=== PATIENT | female | born 1945 | race Caucasian/White ===

== ENCOUNTER 2017-07-15 08:52 | Day surgery (SDC) | payer MEDICARE, OTHER ==
[~2017-07-15] VITALS: Ht 167.6 cm; Wt 89.8 kg
[~2017-07-15 08:52] MED LIST: ANASTROZOLE1 MG PO; CALTRATE 600 +1 EAC1 PO; CENTRUM SILVER1 EAC1 PO; CYMBALTA60 MG PO; DICLOFENAC SODI75 MG PO; FLONASE ALLERG9.9 ML NS; FLUOXETINE HCL20 M1 PO; FOSAMAX70 MG PO; GABAPENTIN100 MG PO; HYDROCODON-ACE1 EA11 PO; HYDROMORPHO IV; IRON325 M1 PO; LIALDA1.2 GM PO; MIRALAX17 GM PO; NORCO 5-325 TA1 EACH PO; OMEGA 3 1,0001 EACH PO; OMEPRAZOLE40 MG PO; ONDANSETRON HCL4 MG PO; PERCOCET 7.5-31 EACH PO; VITAMIN C500 M1 PO; VITAMIN D32000 UNI1 PO; VITAMIN D35000 UNIT PO; XARELTO10 MG PO
--- NOTE | 2017-07-15 11:08 | NUR ---
07/15/17 1108 Sally Bledsoe 1103 PATIENT ARRIVES TO PACU SLEEPING, OPENS EYES WITH VERBAL STIMULI, BUT VERY DROWSY, THEN BACK TO SLEEP. RESP EVEN AND UNLABORED, NC AT 3 LTIERS. 1105 PATIENT AWAKE, TALKING TO DR MORALES, THEN BACK TO SLEEP.
--- NOTE | 2017-07-15 14:55 | NUR ---
PT REQUESTED A VISIT. I HAD JUST A MOMENT BEFORE STAFF CAME TO TAKE HER. I COULD SENSE SOME ANXIETY, PRAYED FOR PEACE OF MIND, AND CONTINUED TO CARE FOR ABDULAZIZ. HE EXPRESSED CONCERN ABOUT HER PAST FAMILY AND HER OWN COLON ISSUES. BREATHED A BIG SIGH OF RELIEF WITH A CLEAN SCOPE RESULT. THANKED ME FOR VISIT. WILL CONTINUE TO BE AVAILABLE NEEDED
--- NOTE | 2017-07-15 20:48 | OR ---
[facility] [address], [place] [address] Signed DATE OF OPERATION: 07/15/2017 SURGEON: Karla Morales MD PREOPERATIVE DIAGNOSES: 1. Persisting recurring diarrhea. 2. History of ulcerative colitis, on mesalamine. POSTOPERATIVE DIAGNOSIS: Mild rectosigmoid and rectal inflammation (edema). PROCEDURE: Total colonoscopy to cecum with multiple biopsies. ANESTHESIA: Intravenous sedation, fentanyl 150 mcg and Versed 6 mg. INDICATION: This 71-year-old white woman is a patient of Dr. Flood and known to have ulcerative colitis in the past. She is currently on mesalamine and has been. She has also had cholecystectomy in the past. She had an episode in April with rather significant flare of symptoms including diarrhea, but no blood. She had a fair amount of mucus as well. She was prescribed Imodium which helps. She is to continue with her mesalamine. My evaluation of her showed her to be in good health other than her symptoms of loose bowel movements which were at least six times a day. She was empirically treated with Flagyl 250 mg p.o. t.i.d. for 2 weeks which she took. She cannot say there was a clear benefit from it specifically, however. She is here for colonoscopy on that basis to assess for disease activity of previously established ulcerative colitis. FINDINGS: The prep was adequate, but not great. This may be related to Ensure that she had taken yesterday. She had numerous diverticula throughout the colon. There was no severe inflammatory change of the colon in anyway. The rectosigmoid and rectum had edema suggestive of mild colitis. No ulcerations for sure. Biopsies were taken throughout. She did have internal hemorrhoidal changes as well. DESCRIPTION OF PROCEDURE: The patient was brought to the operating room #2, temporary endoscopy suite, placed in the lateral decubitus position, and given intravenous sedation to the point of slurred speech and nystagmus with full cardiopulmonary monitoring. Digital rectal examination Electronically Signed By: KARLA MORALES MD 07/15/17 2048 PATIENT NAME: MICHEL GREEN OPERATIVE REPORT DATE OF : 45 REPORT #: [id number] PHYSICIAN: KARLA MORALES MD PCP: DAVID FLOOD MD REPORT IS CONFIDENTIAL AND NOT TO BE RELEASED WITHOUT AUTHORIZATION [facility] [address], [place] [address] Signed was performed and found to be normal. An Olympus video colonoscope was passed in the rectum and manipulated throughout the colon. She had areas of gelatinous residue in the colon. No sign of blood or ulceration. Irrigation was undertaken throughout as needed. The scope ultimately was passed to the cecum. The cecum appeared quite normal. Biopsies were taken of it for pathologic examination. The scope was further withdrawn. Irrigation undertaken and suctioned as needed. The mucosal pattern was not inflamed particularly. She did have numerous diverticula, which included right side. Biopsies were taken of the transverse colon, left colon, sigmoid and rectosigmoid as was edematous change there (blurring of blood vessels and so forth), but no sign of ulcerations proper. Biopsies were taken of the rectum as well. Retroflexed view confirmed internal hemorrhoidal changes. The scope was straightened, withdrawn and removed. The patient was taken to the recovery room in good condition. CONCLUDING DIAGNOSIS: Mindful of her underlying ulcerative colitis diagnosis. She does not appear to have severe flare of disease at this time. Whether or not Flagyl is a benefit is uncertain. I would have her continue with mesalamine for the time being. Discontinue the Imodium she was taking and initiate Questran 4 g p.o. q.i.d. tapering to the lowest effective dose. She will see us back in the office in 4 to 6 weeks, at which point we will review her pathology reports and assess her clinical situation. MD TORY Pfeiffer/MODL /[id number] cc: David Flood MD Copies: DAVID FLOOD MD ~ Electronically Signed By: KARLA MORALES MD 07/15/17 2048 PATIENT NAME: MICHEL GREEN OPERATIVE REPORT DATE OF : 45 REPORT #: [id number] PHYSICIAN: KARLA MORALES MD PCP: DAVID FLOOD MD REPORT IS CONFIDENTIAL AND NOT TO BE RELEASED WITHOUT AUTHORIZATION
== END 2017-07-15 11:40 | disposition home or self-care (01) ==
LOC: OPS 08:52 → DS 08:52 → OPS 09:45 → DS 13:00 → OPS 14:00
PROVIDERS: Surgery
PROC: 0DBL8ZX Excision of Transverse Colon, Via Natural or Artificial Opening Endoscopic, Diagnostic (ICD-10-PCS; 2017-07-15)
PROC: 0DBP8ZX Excision of Rectum, Via Natural or Artificial Opening Endoscopic, Diagnostic (ICD-10-PCS; 2017-07-15)
PROC: 0DBG8ZX Excision of Left Large Intestine, Via Natural or Artificial Opening Endoscopic, Diagnostic (ICD-10-PCS; 2017-07-15)
PROC: 0DBH8ZX Excision of Cecum, Via Natural or Artificial Opening Endoscopic, Diagnostic (ICD-10-PCS; principal; 2017-07-15 09:45)
DX: K62.89 Other specified diseases of anus and rectum (principal); K64.8 Other hemorrhoids; K57.30 Diverticulosis of large intestine without perforation or abscess without bleeding; K62.5 Hemorrhage of anus and rectum; Z87.891 Personal history of nicotine dependence; K21.9 Gastro-esophageal reflux disease without esophagitis; E66.3 Overweight; Z68.32 Body mass index [BMI] 32.0-32.9, adult; Z91.040 Latex allergy status
CPT/HCPCS: 88305; 99153; G0500; J0690; J2250; J3010; J7120

== ENCOUNTER 2019-08-19 11:54 | Inpatient (IN) | payer MEDICARE, OTHER ==
[~2019-08-19] VITALS: Ht 167.6 cm; Wt 82.1 kg
--- OUTSIDE RECORDS SUMMARY | ~2019-08-19 | XMS | Encounter Summary ---
Demographics + + + | Address | [address] | | | [place] [address] | + + + | Home Phone | | + + + | Preferred Language | Unknown | + + + | Marital Status | | + + + | Pentecostalism Affiliation | Unknown | + + + | Race | Unknown | + + + | Ethnic Group | Unknown | + + + Author + + + | Author | [facility] | | | and [place] | + + + | Organization | [facility] | | | and [place] | + + + | Address | Unknown | + + + | Phone | Unavailable | + + + Support + + + + + | Name | Relationship | Address | Phone | + + + + + | Jettghislaine Fernandes | ECON | 1906 | | | | | [place] | | | | | [address] | | + + + + + | No Contacts | ECON | Unknown | | + + + + + Care Team Providers + +------+ + | Care Ve Teacher Name | Role | Phone | + +------+ + PCP | Unavailable | + +------+ + Encounter Details +--------+ + + + + | Date | Type | Department | Care Team | Description | +--------+ + + + + | 10/05/ | Hospital | [facility] | [place], | | | 2007 - | Encounter | MED CTR CANCER | Lux Goddard MD [address] | | | | [address] | [address] | | | 10/15/ | | [place], [place] | [place] [address] | | | 2007 | | [address] | [phone] | | | | | [phone] | | | +--------+ + + + + Social History + +-------+ +--------+------+ | Tobacco Use | Types | Packs/Day | Years | Date | | | | | Used | | + +-------+ +--------+------+ | Never Assessed | | | | | + +-------+ +--------+------+ + + + | Sex Assigned at | Date Recorded | | | | + + + | Not on file | | + + + documented as of this encounter Plan of Treatment Not on filedocumented as of this encounter Visit Diagnoses Not on filedocumented in this encounter"
--- OUTSIDE RECORDS SUMMARY | ~2019-08-19 | XMS | Encounter Summary ---
Demographics + + + | Address | [address] | | | [place] [address] | + + + | Home Phone | | + + + | Preferred Language | Unknown | + + + | Marital Status | | + + + | Hindu Affiliation | Unknown | + + + | Race | Unknown | + + + | Ethnic Group | Unknown | + + + Author + + + | Author | [facility] | | | and [place] | + + + | Organization | [facility] | | | and [place] | + + + | Address | Unknown | + + + | Phone | Unavailable | + + + Support + + + + + | Name | Relationship | Address | Phone | + + + + + | Jett Fernandes | ECON | [address] | | | | | [place] | | | | | [address] | | + + + + + | No Contacts | ECON | Unknown | | + + + + + Care Team Providers + +------+ + | Care Motor Electrician Name | Role | Phone | + +------+ + | Kike Ragsdale MD | PCP | | + +------+ + Reason for Visit + + + | Reason | Comments | + + + | Hand Problem | Right wrist pain | + + + Service/Procedure (Routine) +--------+--------+ + + + + | Status | Reason | Specialty | Diagnoses / | Referred By | Referred To | | | | | Procedures | Contact | Contact | +--------+--------+ + + + + | Closed | | | Diagnoses | Michael, | Brennen | | | | | Ekaterina | Jeremy | Bernardino Cifuentes MD | | | | | tunnel | MD Rick | [address] | | | | | syndrome | [address] | [facility] | | | | | unspecified | [place] | [place] [address] | | | | | laterality | [place] [address] | Phone: | | | | | | [place], [place] | [phone] | | | | | | [address] | Fax: | | | | | | Phone: | [phone] | | | | | | [phone] | | | | | | | Fax: | | | | | | | [phone] | | +--------+--------+ + + + + Encounter Details +--------+---------+ + + + | Date | Type | Department | Care Team | Description | +--------+---------+ + + + | 10/24/ | Office | [facility] | Bernardino Hutton, | Right carpal tunnel | | 2019 | Visit | ORTHO [facility]TS | MD Rehan HOLM | syndrome (Primary | | | | [facility] | [place] [address] | Dx); Right hand | | | | [address] | [phone] | weakness; Thenar | | | | [place], [place] | | atrophy, right | | | | [address] | | | | | | [phone] | | | +--------+---------+ + + + Social History + +-------+ +--------+------+ | Tobacco Use | Types | Packs/Day | Years | Date | | | | | Used | | + +-------+ +--------+------+ | Former Smoker | | 1 | | | + +-------+ +--------+------+ + + + | Sex Assigned at | Date Recorded | | | | + + + | Not on file | | + + + documented as of this encounter Last Filed Vital Signs + + + + + | Vital Sign | Reading | Time Taken | Comments | + + + + + | Blood Pressure | 128/72 | 10/24/2018 10:16 AM | | | | | PDT | | + + + + + | Pulse | 72 | 10/24/2018 10:16 AM | | | | | PDT | | + + + + + | Temperature | - | - | | + + + + + | Respiratory Rate | - | - | | + + + + + | Oxygen Saturation | 98% | 10/24/2018 10:16 AM | | | | | PDT | | + + + + + | Inhaled Oxygen | - | - | | | Concentration | | | | + + + + + | Weight | 83.1 kg (183 lb 3.2 | 10/24/2018 10:16 AM | | | | oz) | PDT | | + + + + + | Height | 167.6 cm (5' 6") | 10/24/2018 10:16 AM | | | | | PDT | | + + + + + | Body Mass Index | 29.57 | 10/24/2018 10:16 AM | | | | | PDT | | + + + + + documented in this encounter Progress Notes Bernardino Hutton MD - 10/24/2018 10:05 AM PDTFormatting of this note might be different fro m the original. [facility]: Orthopedic Surgery Patient Name:Angelina Zuñiga AGE: 72 y.o. :1945 CHIEF COMPLAINT: Hand Problem (Right wrist pain ) HPI HISTORY OF PRESENT ILLNESS Patient overall doing well. No complications noted. No signs of infection. 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 SPRAYS BLEACH WATER ON SKIN ROSELYN LY Neuromyopathy (HCC) Visual disturbance READERS Past Surgical History: Procedure Laterality Date BREAST LUMPECTOMY Right 2013 CARPAL TUNNEL RELEASE Right 03/18/2018 Procedure: CARPAL TUNNEL RELEASE; Surgeon: Epifanio Sandoval DO; Location: [facility]; Service: Orthopedics; Laterality: Right; RT CTR CARPAL TUNNEL RELEASE Right 09/09/2018 Procedure: CARPAL TUNNEL RELEASE; Surgeon: Bernardino Hutton MD; Location: [facility]; Service: Orthopedics; Laterality: Right; with fat pad graft CHOLECYSTECTOMY 2007 KNEE SURGERY Bilateral TKA , 2013 on right, 2010 on left OTHER SURGICAL HISTORY 2008 ABDOMINAL WALL MESH REMOVAL - ALONG WITH HERNIA REPAIR OTHER SURGICAL HISTORY HARDWARE PRESENT - BILAT KNEES OTHER SURGICAL HISTORY Right 09/09/2018 TENDON TRANSFER - Procedure: TENDON TRANSFER/TRANSPLANT; Surgeon: Bernardino Hutton MD; Lo cation: [facility]; Service: Orthopedics; Laterality: Right; Right revision carpa l tunnel release, tendon transfer TONSILLECTOMY AND ADENOIDECTOMY A CHILD Allergies Allergen Reactions Latex Rash Prior to Admission medications Medication Sig Start Date End Date Taking? Authorizing Provider calcium-vitamin D (CALCIUM 600/VITAMIN D) 600-400 MG-UNIT TABS Take by mouth Daily. 2 DATA MIGRATION GABRIEL SR cholecalciferol (VITAMIN D-3 SUPER STRENGTH) 2000 UNITS TABS Take 2,000 Units by mouth Karon y. 10/30/11 DATA MIGRATION GABRIEL SR fluoxetine (PROZAC) 20 MG tablet Take 1-2 tablets by mouth daily 10/30/11 DATA MIGRATION E DI SR Magnesium Gluconate 250 MG TABS Take 250 mg by mouth Daily. 10/30/11 DATA MIGRATION GABRIEL SR mesalamine (LIALDA) 1.2 G EC tablet Take 2 tablets by mouth once daily 10/30/11 DATA MIGRA TION GABRIEL SR Multiple Vitamins-Minerals (CENTRUM SILVER) TABS Take 1 tablet by mouth once daily 10/30/11 DATA MIGRATION GABRIEL SR [place]-3 Fatty Acids (OMEGA 3 PO) CPDR Take 1 capsule by mouth daily 10/30/11 DATA MIGRATIO N GABRIEL SR omeprazole (PRILOSEC) 40 MG capsule Take 40 mg by mouth Daily. 10/30/11 DATA MIGRATION GABRIEL SR Potassium Gluconate 550 MG TABS Take 550 mg by mouth Daily. 10/30/11 DATA MIGRATION GABRIEL SR No family history on file. Social History Socioeconomic History Marital status: Spouse name: Not on file Number of children: Not on file Years of education: Not on file Highest education level: Not on file Social Needs Financial resource strain: Not on file Food insecurity - worry: Not on file Food insecurity - inability: Not on file Transportation needs - medical: Not on file Transportation needs - non-medical: Not on file Occupational History Not on file Tobacco Use Smoking status: Former Smoker Packs/day: 1.00 Substance and Sexual Activity Alcohol use: Not on file Comment: Alcoholic Drinks/day: ONE TO TWO DRINKS PER WEEK Drug use: Not on file Comment: Drug use: No Sexual activity: Not on file Other Topics Concern Not on file Social History Narrative Not on file PHYSICAL EXAM Vital Signs: BP 128/72 | Pulse 72 | Ht 1.676 m (5' 6") | Wt 83.1 kg (183 lb 3.2 oz) | SpO2 98% | BM I 29.57 kg/m Physical Exam Ortho Exam Wound healed Neurovascularly intact, Motor and sensation grossly intact Brisk cap refill 2+ pulses No signs of complication Tendon transfer is intact for thumb abduction. Thumb abduction is strong. Sensation has i mproved to the DIP joint crease on the median nerve innervated digits PROBLEM LIST Encounter Diagnoses Name Primary? Right carpal tunnel syndrome Yes Right hand weakness Thenar atrophy, right ASSESSMENT & PLAN Continue tendon transfer protocol in terms of gradual strengthening at this point. No furt her splinting required. Follow-up in about 6-8 weeks. All questions answered. @[email or web address]@ Primary Care Physician: MD Bernardino Tolbert MD This document has been prepared with [employer]ther[employer] voice recognition system. The possibility of "s ound alike" bore miner operator errors, and additions, or deletions may occur. If there is any que stion with respect to clarity of the message being conveyed, please contact me directly for clarification. documented in this en counter Plan of Treatment Not on filedocumented as of this encounter Visit Diagnoses + + | Diagnosis | + + | Right carpal tunnel syndrome - Primary Carpal tunnel syndrome | + + | Right hand weakness Muscle weakness (generalized) | + + | Thenar atrophy, right | + + documented in this encounter
--- OUTSIDE RECORDS SUMMARY | ~2019-08-19 | XMS | Encounter Summary ---
Demographics + + + | Address | [address] | | | [place] [address] | + + + | Home Phone | | + + + | Preferred Language | Unknown | + + + | Marital Status | | + + + | Nondenominational Affiliation | Unknown | + + + | Race | Unknown | + + + | Ethnic Group | Unknown | + + + Author + + + | Author | [facility] | | | and [place] | + + + | Organization | [facility] | | [...] [place] | | | | | [address] | | + + + + + | No Contacts | ECON | Unknown | | + + + + + Care Team Providers + +------+ + | Care Shot Man Name | Role | Phone | + +------+ + PCP | Unavailable | + +------+ + Encounter Details +--------+ + + + + | Date | Type | Department | Care Team | Description | +--------+ + + + + | 11/14/ | Hospital | [facility] | [place], | | | 2009 | Encounter | MED CTR CANCER | Lux Goddard MD [address] | | | [address] | [address] | | | | | [place], [place] | [place] [address] | | | | | [address] | [phone] | | | | | [phone] | | | +--------+ + + + [...] Not on filedocumented as of this encounter Procedures + +--------+ + + + | Procedure Name | Priori | Date/Time | Associated Diagnosis | Comments | | | ty | | | | + +--------+ + + + | IMAGING REPORT - | | 04/01/2018 | | Results for this | | EXTERNAL SCAN | | 12:00 AM | | procedure are in the | | | | PST | | results section. | + +--------+ + + + documented in this encounter Results IMAGING REPORT - EXTERNAL SCAN (04/01/2018 12:00 AM PST) + + + | Narrative | Performed At | + + + | Ordered by an | | | unspecified provider. | | + + + documented in this encounter Visit Diagnoses Not on filedocumented in this encounter"
--- OUTSIDE RECORDS SUMMARY | ~2019-08-19 | XMS | Encounter Summary ---
Demographics + + + | Address | [address] | | | [place] [address] | + + + | Home Phone | | + + + | Preferred Language | Unknown | + + + | Marital Status | | + + + | Sikhism Affiliation | Unknown | + + + | Race | Unknown | + + + | Ethnic Group | Unknown | + + + Author + + + | Author | [facility] | | | and [place] | + + + | Organization | [facility] | | [...] [place] | | | | | [address] | | + + + + + | No Contacts | ECON | Unknown | | + + + + + Care Team Providers + +------+ + | Care Office Bookkeeper Name | Role | Phone | + +------+ + PCP | Unavailable | + +------+ + Encounter Details +--------+ + + + + | Date | Type | Department | Care Team | Description | +--------+ + + + + | 07/06/ | Hospital | [facility] | [place], | | | 2006 - | Encounter | MED CTR CANCER | Lux Goddard MD [address] | | | | | [place] [address] | [address] | | | 07/15/ | | [place], [place] | [place] [address] | | | 2006 | | [address] | [phone] | | | | | [phone] | | | +--------+ + + + [...]
--- OUTSIDE RECORDS SUMMARY | ~2019-08-19 | XMS | Encounter Summary ---
Demographics + + + | Address | [address] | | | [place] [address] | + + + | Home Phone | | + + + | Preferred Language | Unknown | + + + | Marital Status | | + + + | Druze Affiliation | Unknown | + + + | Race | Unknown | + + + | Ethnic Group | Unknown | + + + Author + + + | Author | [facility] | | | and [place] | + + + | Organization | [facility] | | | and [place] | + + + | Address | Unknown | + + + | Phone | Unavailable | + + + Support + + + + + | Name | Relationship | Address | Phone | + + + + + | Jett Fernandes | ECON | 1906 | | | | | [place] | | | | | [address] | | + + + + + | No Contacts | ECON | Unknown | | + + + + + Care Team Providers + +------+ + | Care Manager Desktop Name | Role | Phone | + +------+ + | Kike Ragsdale MD | PCP | | + +------+ + Reason for Visit +--------+--------+ + | Reason | Onset | Comments | | | Date | | +--------+--------+ + | Other | 10/12/ | Protocol for therapy | | | 2018 | | +--------+--------+ + Encounter Details +--------+ + + + + | Date | Type | Department | Care Team | Description | +--------+ + + + + | 10/12/ | Telephone | [facility] | Bernardino Hutton, | Other (Protocol for | | 2018 | | ORTHO SPORTS | [address] | therapy) | | | | [facility] [place] | [place] [address] | | | | | [address] | [phone] | | | | | [place], [place] | | | | | | [address] | | | | | | [phone] | | | +--------+ + + + [...] + + documented as of this encounter Miscellaneous Notes Telephone Encounter - Samantha Meade CMA - 10/12/2018 2:30 PM PDTFaxed over protocol, per Rogers laboy patient needs to do heidi protocol. Fax confirmation received. Electronically conner d by Samantha Meade CMA at 10/12/2018 2:33 PM PDTTelephone Encounter - Annie Mckee - 10/12/2018 10:36 AM PDTDr. Hutton patient called and stated that she has an PT order to [facility] in [place] and they need Dr. Hutton protocol for the patients Right Hand. Please fax protocol to Attn Tammy. Please call patient back to let her know it has been faxed. doc umented in this encounter Plan of Treatment Not on filedocumented as of this encounter Visit Diagnoses Not on filedocumented in this encounter"
--- OUTSIDE RECORDS SUMMARY | ~2019-08-19 | XMS | Encounter Summary ---
Demographics + + + | Address | [address] | | | [place] [address] | + + + | Home Phone | | + + + | Preferred Language | Unknown | + + + | Marital Status | | + + + | Yazidi Affiliation | Unknown | + + + | Race | Unknown | + + + | Ethnic Group | Unknown | + + + Author + + + | Author | [facility] | | | and [place] | + + + | Organization | [facility] | | | and [...] [place] | | | | | [address] | | + + + + + | No Contacts | ECON | Unknown | | + + + + + Care Team Providers + +------+ + | Care Invoice Machine Operator Name | Role | Phone | + +------+ + PCP | Unavailable | + +------+ + Encounter Details +--------+ + + + + | Date | Type | Department | Care Team | Description | +--------+ + + + + | 10/05/ | Hospital | [facility] | [place], | | | 2007 - | Encounter | MED CTR CANCER | Lux Goddard MD [address] | | | | | [place] [address] | [address] | | | 10/15/ | | [place], [place] | [place] [address] | | | 2007 | | [address] | [phone] | | | | | [phone] | | | +--------+ + + + [...]
--- OUTSIDE RECORDS SUMMARY | ~2019-08-19 | XMS | Encounter Summary ---
Demographics + + + | Address | [address] | | | [place] [address] | + + + | Home Phone | | + + + | Preferred Language | Unknown | + + + | Marital Status | | + + + | Denominational Affiliation | Unknown | + + + | Race | Unknown | + + + | Ethnic Group | Unknown | + + + Author + + + | Author | [facility] | | | and [place] | + + + | Organization | [facility] | | | [...] [place] | | | | | [address] | | + + + + + | No Contacts | ECON | Unknown | | + + + + + Care Team Providers + +------+ + | Care Production Sampler Name | Role | Phone | + +------+ + | Kike Ragsdale MD | PCP | | + +------+ + Encounter Details +--------+ + + + + | Date | Type | Department | Care Team | Description | +--------+ + + + + | 03/10/ | Orders Only | [facility] | Epifanio Sandoval | | | 2018 | | [address] | [address] | | | | | [place] | [place], | | | | | [place], [place] | [place] [address] | | | | | [address] | [phone] | | | | | [phone] | | | +--------+ + + + [...] | + +--------+ + + + | XR WRIST RIGHT 3 + | Routin | 03/10/2018 | | Results for this | | VW | e | 10:44 AM | | procedure are in the | | | | PST | | results section. | + +--------+ + + + documented in this encounter Results XR Wrist Right 3 + Vw (03/10/2018 10:44 AM PST) + + | Specimen | + + | | + + + + + | Narrative | Performed At | + + + | History: This is a 72 y.o. year old female. Diagnosis for Order | | | ICD-10-CM 1. Right carpal tunnel syndrome G56.01 X-ray wrist right | | | . Findings: 3 views of the right wrist do not demonstrate acute | | | fracture dislocations. Some evidence of mild osteoarthritis the | | | radiocarpal joints. No further findings.. 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 Epifanio Sandoval DO | | | 03/10/2018 Epifanio Sandoval DO has created this entry using Neu[employer] | | | [employer] Voice Recognition software and ReachLocal macros. The entry | | | has been reviewed and there may still exist sound alike word errors. | | | | | + + + + + | Procedure Note | + + | Ari Cano Conversion - 10/06/2018 1:53 PM PDT History: This is a 72 y.o. year old | | female. Diagnosis for Order ICD-10-CM1. Right carpal tunnel syndrome G56.01 X-ray | | wrist right. Findings: 3 views of the right wrist do not demonstrate acute | | fracturedislocations. Some evidence of mild osteoarthritis the radiocarpal joints.No | | further findings.. Impression: Mild osteoarthritis radiocarpal joint. Epifanio Sandoval, | | DO03/10/2018 Epifanio Sandoval DO has created this entry using Tra[employer]mission | | VoiceRecognition software and ReachLocal macros. The entry has been reviewed andthere | | may still exist sound alike word errors. | | | |Impression: Mild osteoarthritis radiocarpal joint. | | | | | |Epifanio Sandoval DO | |03/10/2018 | | | |Epifanio Sandoval DO has created this entry using Traansmission Voice | |Recognition software and ReachLocal macros. The entry has been reviewed and | |there may still exist sound alike word errors. | | | + + documented in this encounter Visit Diagnoses Not on filedocumented in this encounter"
--- OUTSIDE RECORDS SUMMARY | ~2019-08-19 | XMS | Encounter Summary ---
Demographics + + + | Address | [address] | | | [place] [address] | + + + | Home Phone | | + + + | Preferred Language | Unknown | + + + | Marital Status | | + + + | Hindu Affiliation | Unknown | + + + | Race | Unknown | + + + | Ethnic Group | Unknown | + + + Author + + + | Author | [facility] | | | and [place] | + + + | Organization | [facility] | | [...] [place] | | | | | [address] | | + + + + + | No Contacts | ECON | Unknown | | + + + + + Care Team Providers + +------+ + | Care Wage Adjuster Name | Role | Phone | + +------+ + PCP | Unavailable | + +------+ + Encounter Details +--------+ + + + + | Date | Type | Department | Care Team | Description | +--------+ + + + + | 07/06/ | Hospital | [facility] | [place], | | | 2006 - | Encounter | MED CTR CANCER | Lux Goddard MD [address] | | | | | [place] [address] | [address] | | | 07/15/ | | [place], [place] | [place] [address] | | | 2006 | | [address] | [phone] | | | | | [phone] | | | +--------+ + + + [...]
--- OUTSIDE RECORDS SUMMARY | ~2019-08-19 | XMS | Encounter Summary ---
Demographics + + + | Address | [address] | | | [place] [address] | + + + | Home Phone | | + + + | Preferred Language | Unknown | + + + | Marital Status | | + + + | Yazidi Affiliation | Unknown | + + + | Race | Unknown | + + + | Ethnic Group | Unknown | + + + Author + + + | Author | [facility] | | | and [place] | + + + | Organization | [facility] | | [...] [place] | | | | | [address] | | + + + + + | No Contacts | ECON | Unknown | | + + + + + Care Team Providers + +------+ + | Care Line Haul Driver Name | Role | Phone | + +------+ + PCP | Unavailable | + +------+ + Encounter Details +--------+ + + + + | Date | Type | Department | Care Team | Description | +--------+ + + + + | 08/03/ | Hospital | [facility] | [place], | | | 2006 - | Encounter | MED CTR CANCER | Lux Goddard MD [address] | | | | | [place] [address] | [address] | | | 08/14/ | | [place], [place] | [place] [address] | | | 2006 | | [address] | [phone] | | | | | [phone] | | | +--------+ + + + [...]
--- OUTSIDE RECORDS SUMMARY | ~2019-08-19 | XMS | Encounter Summary ---
Demographics + + + | Address | [address] | | | [place] [address] | + + + | Home Phone | | + + + | Preferred Language | Unknown | + + + | Marital Status | | + + + | Zoroastrian Affiliation | Unknown | + + + | Race | Unknown | + + + | Ethnic Group | Unknown | + + + Author + + + | Author | [facility] | | | and [place] | + + + | Organization | [facility] | | | and [...] [place] | | | | | [address] | | + + + + + | No Contacts | ECON | Unknown | | + + + + + Care Team Providers + +------+ + | Care Software Developer Mid Level Name | Role | Phone | + +------+ + PCP | Unavailable | + +------+ + Encounter Details +--------+ + + + + | Date | Type | Department | Care Team | Description | +--------+ + + + + | 06/02/ | Hospital | [facility] | [place], | | | 2006 - | Encounter | MED CTR CANCER | Lux Goddard MD [address] | | | | | [place] [address] | [address] | | | 06/14/ | | [place], [place] | [place] [address] | | | 2006 | | [address] | [phone] | | | | | [phone] | | | +--------+ + + + [...]
--- OUTSIDE RECORDS SUMMARY | ~2019-08-19 | XMS | Encounter Summary ---
Demographics + + + | Address | [address] | | | [place] [address] | + + + | Home Phone | | + + + | Preferred Language | Unknown | + + + | Marital Status | | + + + | Caodaism Affiliation | Unknown | + + + | Race | Unknown | + + + | Ethnic Group | Unknown | + + + Author + + + | Author | [facility] | | | and [place] | + + + | Organization | [facility] | | | [...] [place] | | | | | [address] | | + + + + + | No Contacts | ECON | Unknown | | + + + + + Care Team Providers + +------+ + | Care Hot Metal Crane Operator Name | Role | Phone | [...] | | [place] | [place], | | | | | [place], [place] | [place] [address] | | | | | [address] | [phone] | | | | | [phone] | | | +--------+ + + + [...] Sandoval DO has created this entry using [employer] | | | Ziplocal Voice Recognition software and BioKier macros. The entry | | | has [...] Sandoval DO has created this entry using [employer] | | VoiceRecognition software and BioKier macros. The entry has been reviewed andthere | | may still exist sound alike word errors. | | | |Impression: Mild osteoarthritis radiocarpal joint. | | | | | |Epifanio Sandoval DO | |03/10/2018 | | | |Epifanio Sandoval DO has created this entry using [employer] Voice | |Recognition software and BioKier macros. The entry has been reviewed and | |there may still exist sound alike word errors. | | | + + documented in this encounter Visit Diagnoses Not on filedocumented in this encounter"
--- OUTSIDE RECORDS SUMMARY | ~2019-08-19 | XMS | Encounter Summary ---
Demographics + + + | Address | [address] | | | [place] [address] | + + + | Home Phone | | + + + | Preferred Language | Unknown | + + + | Marital Status | | + + + | Moravian Affiliation | Unknown | + + + | Race | Unknown | + + + | Ethnic Group | Unknown | + + + Author + + + | Author | [facility] | | | and [place] | + + + | Organization | [facility] | | | and [...] [place] | | | | | [address] | | + + + + + | No Contacts | ECON | Unknown | | + + + + + Care Team Providers + +------+ + | Care Hard Rock Miner Blasting Name | Role | Phone | + +------+ + PCP | Unavailable | + +------+ + Encounter Details +--------+ + + + + | Date | Type | Department | Care Team | Description | +--------+ + + + + | 10/28/ | Abstract | [place] [facility] | DATA MIGRATION GABRIEL | | | 2011 | | Conversion Location | SR | | | | | [address] | | | | | | [place], [place] | | | | | | [address] | | | | | | [phone] | | | +--------+ + + + [...] + + + | Blood Pressure | 122/78 | 07/30/2010 12:00 AM | | | | | PDT | | + + + + + | Pulse | - | - | | + + + + + | Temperature | - | - | | + + + + + | Respiratory Rate | - | - | | + + + + + | Oxygen Saturation | - | - | | + + + + + | Inhaled Oxygen | - | - | | | Concentration | | | | + + + + + | Weight | 92.5 kg (204 lb) | 07/30/2010 12:00 AM | | | | | PDT | | + + + + + | Height | 14.5 cm (5.7") | 07/30/2010 12:00 AM | | | | | PDT | | + + + + + | Body Mass Index | 4414.52 | 07/30/2010 12:00 AM | | | | | PDT | | + + + + + documented in this encounter Plan of Treatment Not on filedocumented as of this encounter Procedures + +--------+ + + + | Procedure Name | Priori | Date/Time | Associated Diagnosis | Comments | | | ty | | | | + +--------+ + + + | ENDOSCOPY, COLON, | Routin | 07/02/2008 | | Results for this | | DIAGNOSTIC | e | 12:00 AM | | procedure are in the | | | | PDT | | results section. | + +--------+ + + + documented in this encounter Results ENDOSCOPY, COLON, DIAGNOSTIC (07/02/2008 12:00 AM PDT) + + | Specimen | + + | | + + + + + | Narrative | Performed At | + + + | | | + + + documented in this encounter Visit Diagnoses Not on filedocumented in this encounter
--- OUTSIDE RECORDS SUMMARY | ~2019-08-19 | XMS | Encounter Summary ---
Demographics + + + | Address | [address] | | | [place] [address] | + + + | Home Phone | | + + + | Preferred Language | Unknown | + + + | Marital Status | | + + + | Lutheran Affiliation | Unknown | + + + | Race | Unknown | + + + | Ethnic Group | Unknown | + + + Author + + + | Author | [facility] | | | and [place] | + + + | Organization | [facility] | | | [...] [place] | | | | | [address] | | + + + + + | No Contacts | ECON | Unknown | | + + + + + Care Team Providers + +------+ + | Care Finishing Machine Operator Name | Role | Phone [...] [id number] | | | | | | [place], [place] | | | | | | [address] | | | | | | [phone] | | | +--------+ + + + [...]
--- OUTSIDE RECORDS SUMMARY | ~2019-08-19 | XMS | Encounter Summary ---
Demographics + + + | Address | [address] | | | [place] [address] | + + + | Home Phone | | + + + | Preferred Language | Unknown | + + + | Marital Status | | + + + | Hoahaoism Affiliation | Unknown | + + + | Race | Unknown | + + + | Ethnic Group | Unknown | + + + Author + + + | Author | [facility] | | | and [place] | + + + | Organization | [facility] | | | [...] [place] | | | | | [address] | | + + + + + | No Contacts | ECON | Unknown | | + + + + + Care Team Providers + +------+ + | Care Gas Or Petroleum Operator Name | Role | Phone | + +------+ + PCP | Unavailable | + +------+ + Encounter Details +--------+ + + + + | Date | Type | Department | Care Team | Description | +--------+ + + + + | 06/22/ | Hospital | [facility] | [place], | | | 2006 | Encounter | MED CTR XRAY [address] | Lux Goddard MD [address] | | | | | [place] | [address] [place] | | | | | [place] [address] | [place] [address] | | | | | [phone] | [phone] | | | | | | | | +--------+ + + + [...]
--- OUTSIDE RECORDS SUMMARY | ~2019-08-19 | XMS | Clinical Summary ---
Demographics + + + | Address | [address] | | | [place] [address] | + + + | Home Phone [...] + + + + + | Jett Dena | ECON | 1906 | | | | | [place] | | | | | [address] | | + + + + + | No Contacts | ECON | Unknown | | + + + + + Care Team Providers + +------+ + | Care Certified Nuclear Medicine Technologist Name | Role | Phone | + +------+ + | Kike Ragsdale MD | PCP | | + +------+ + Allergies + + + + + + | Active Allergy | Reactions | Severity | Noted | Comments | | | | | Date | | + + + + + + | Latex | Rash | Medium | 10/25/19 | | | | | | 19 | | + + + + + + Medications + + + +---------+------+------+-------+ | Medication | Sig | Dispensed | Refills | Star | End | Statu | | | | | | t | Date | s | | | | | | Date | | | + + + +---------+------+------+-------+ | omeprazole | Take 40 mg by mouth | | 0 | 10/16 | | Activ | | (PRILOSEC) 40 MG | Daily. | | | 06/04 | | e | | capsule | | | | 12 | | | + + + +---------+------+------+-------+ | mesalamine | Take 2 tablets by | | 0 | 10/16 | | Activ | | (LIALDA) 1.2 G EC | mouth once daily | | | 06/04 | | e | | tablet | | | | 12 | | | + + + +---------+------+------+-------+ +---+ + | | Additional | | | InformationPatient | | | not taking. Reported | | | on 10/24/2018 10:18 | | | AM | +---+ + + + +---+---+------+---+-------+ | calcium-vitamin D | Take by mouth | | 0 | 10/16 | | Activ | | (CALCIUM 600/VITAMIN | Daily. | | | 06/04 | | e | | D) 600-400 MG-UNIT | | | | 12 | | | | TABS | | | | | | | + + +---+---+------+---+-------+ | fluoxetine | Take 1-2 tablets by | | 0 | 10/16 | | Activ | | (PROZAC) 20 MG | mouth daily | | | 06/04 | | e | | tablet | | | | 12 | | | + + +---+---+------+---+-------+ +---+ + | | Additional | | | InformationPatient | | | not taking. Reported | | | on 10/24/2018 10:18 | | | AM | +---+ + + + +---+---+------+---+-------+ | cholecalciferol | Take 2,000 Units by | | 0 | 10/16 | | Activ | | (VITAMIN D-3 SUPER | mouth Daily. | | | 06/04 | | e | | STRENGTH) 2000 UNITS | | | | 12 | | | | TABS | | | | | | | + + +---+---+------+---+-------+ +---+ + | | Additional | | | InformationPatient | | | taking differently: | | | 5,000 Units Oral | | | DAILY, Reported on | | | 10/24/2018 10:18 AM | +---+ + + + +---+---+------+---+-------+ | Magnesium | Take 250 mg by mouth | | 0 | 10/16 | | Activ | | Gluconate 250 MG | Daily. | | | 06/04 | | e | | TABS | | | | 12 | | | + + +---+---+------+---+-------+ +---+ + | | Additional | | | InformationPatient | | | not taking. Reported | | | on 10/24/2018 10:18 | | | AM | +---+ + + + +---+---+------+---+-------+ | [place]-3 Fatty | CPDR Take 1 capsule | | 0 | 10/16 | | Activ | | Acids (OMEGA 3 PO) | by mouth daily | | | 20 | | e | | | | | | 12 | | | + + +---+---+------+---+-------+ +---+ + | | Additional | | | InformationPatient | | | not taking. Reported | | | on 10/24/2018 10:18 | | | AM | +---+ + + + +---+---+------+---+-------+ | Multiple | Take 1 tablet by | | 0 | 10/16 | | Activ | | Vitamins-Minerals | mouth once daily | | | 06/04 | | e | | (CENTRUM SILVER) | | | | 12 | | | | TABS | | | | | | | + + +---+---+------+---+-------+ +---+ + | | Additional | | | InformationPatient | | | not taking. Reported | | | on 10/24/2018 10:18 | | | AM | +---+ + + + +---+---+------+---+-------+ | Potassium | Take 550 mg by mouth | | 0 | 10/16 | | Activ | | Gluconate 550 MG | Daily. | | | 06/04 | | e | | TABS | | | | 12 | | | + + +---+---+------+---+-------+ +---+ + | | Additional | | | InformationPatient | | | not taking. Reported | | | on 10/24/2018 10:18 | | | AM | +---+ + + + +---+---+------+---+-------+ | diclofenac | | | 0 | 08/1 | | Activ | | (VOLTAREN) 75 mg EC | | | | 2/20 | | e | | tablet | | | | 19 | | | + + +---+---+------+---+-------+ | DULoxetine HCl | Take 125 mg by | | 0 | | | Activ | | (CYMBALTA PO) | mouth. | | | | | e | + + +---+---+------+---+-------+ | ferrous sulfate | Take 325 mg by mouth | | 0 | | | Activ | | 325 mg tablet | daily (with | | | | | e | | | breakfast). | | | | | | + + +---+---+------+---+-------+ | BIOTIN PO | Take by mouth. | | 0 | | | Activ | | | | | | | | e | + + +---+---+------+---+-------+ Active Problems + + + | Problem | Noted Date | + + + | HEMORRHOIDS, INTERNAL | | + + + | ONYCHOMYCOSIS | | + + + | DEPRESSION, MAJOR, RECURRENT, MODERATE | | + + + | FIBROCYSTIC BREAST DISEASE | | + + + | FATTY LIVER DISEASE | | + + + | ULCERATIVE COLITIS | | + + + | NON-HODGKIN'S LYMPHOMA | | + + + | FIBROMYALGIA | | + + + | CHRONIC FATIGUE SYNDROME | | + + + | LEG CRAMPS | | + + + | GASTROESOPHAGEAL REFLUX DISEASE | | + + + | ABDOMINAL PAIN, RIGHT UPPER QUADRANT | | + + + | PERS HX TOBACCO USE PRESENTING HAZARDS HEALTH | | + + + | EMOTIONAL DISTURBANCE | | + + + | CHRONIC PAIN SYNDROME | | + + + | ABDOMINAL PAIN | | + + + Social History + +-------+ +--------+------+ | Tobacco Use | Types | Packs/Day | Years | Date | | | | | Used | | + +-------+ +--------+------+ | Former Smoker | | 1 | | | + +-------+ +--------+------+ + +---+---+---+ | Smokeless Tobacco: | | | | | Never Used | | | | + +---+---+---+ + + + | Sex Assigned at | Date Recorded | | | | + + + | Not on file | | + + + Last Filed Vital Signs + + + + + | Vital Sign | Reading | Time Taken | Comments | + + + + + | Blood Pressure | 112/70 | 12/22/2018 1:06 PM | | | | | PST | | + + + + + | Pulse | 77 | 12/22/2018 1:06 PM | | | | | PST | | + + + + + | Temperature | 36.4 C (97.6 F) | 09/12/2018 10:37 AM | | | | | PDT | | + + + + + | Respiratory Rate | 16 | 12/22/2018 1:06 PM | | | | | PST | | + + + + + | Oxygen Saturation | 97% | 12/22/2018 1:06 PM | | | | | PST | | + + + + + | Inhaled Oxygen | - | - | | | Concentration | | | | + + + + + | Weight | 85 kg (187 lb 6.4 | 12/22/2018 1:06 PM | | | | oz) | PST | | + + + + + | Height | 167.6 cm (5' 6") | 12/22/2018 1:06 PM | | | | | PST | | + + + + + | Body Mass Index | 30.25 | 12/22/2018 1:06 PM | | | | | PST | | + + + + + Plan of Treatment + + + + + | Health Maintenance | Due Date | Last | Comments | | | | Done | | + + + + + | Hepatitis C | | | | | Screening | 6 | | | + + + + + | Breast Cancer | | | | | Screening | 1 | | | + + + + + | Vaccine: Zoster (2 | | 07/08/19 | | | of 3) | 1 | 11 | | + + + + + | Vaccine: | | | | | Pneumococcal 65+ (1 | 1 | | | | of 1 - PPSV23) | | | | + + + + + | Colorectal Cancer | | 07/03/19 | | | Screening | 9 | 09 | | | (Colonoscopy) | | | | + + + + + | Adult Annual | | | | | Wellness Visit | 9 | | | + + + + + | Vaccine: Influenza | | 11/23/19 | | | (#1) | 0 | 18, | | | | | 12/05/19 | | | | | 17, | | | | | 02/23/19 | | | | | 17, | | | | | Addition | | | | | al | | | | | history | | | | | exists | | + + + + + | Vaccine: | | 12/02/19 | | | Dtap/Tdap/Td (2 - | 3 | 13 | | | Td) | | | | + + + + + Results Not on filefrom Last 3 Months Insurance + +--------+ +--------+ +---------+--------+ | Payer | Benefi | Subscriber | Effect | Phone | Address | Type | | | t Plan | ID | [place] | | | | | | / | | Dates | | | | | | Group | | | | | | + +--------+ +--------+ +---------+--------+ | MEDICARE | MEDICA | [id number] | | [phone] | | Medica | | | RE | | 011-Pr | 5 | | re | | | PART A | | esent | | | | | | AND B | | | | | | + +--------+ +--------+ +---------+--------+ | [employer] | MUTUAL | [id number] | | [phone] | | Indemn | | | AND | | 011-Pr | 0 | | ity | | | [place] | | esent | | | | | | [place] | | | | | | | | MDCR | | | | | | | | SUPPL | | | | | | + +--------+ +--------+ +---------+--------+ | MEDICARE | MEDICA | [id number] | | [phone] | | Medica | | | RE | | 011-Pr | 5 | | re | | | PART A | | esent | | | | | | AND B | | | | | | + +--------+ +--------+ +---------+--------+ | [employer] | MUTUAL | [id number] | | [phone] | | Indemn | | | AND | | 018-Pr | 0 | | ity | | | [place] | | esent | | | | | | [place] | | | | | | | | MDCR | | | | | | | | SUPPL | | | | | | + +--------+ +--------+ +---------+--------+ + +--------+ +--------+ + + | Guarantor Name | Accoun | Relation to | Date | Phone | Billing Address | | | t Type | Patient | of | | | | | | | | | | + +--------+ +--------+ + + | Angelina Zuñiga | Person | Self | 12/20/ | | 1905 | | | al/Fam [birth year] | 1946 | [phone] | [place] | | | [place] | | | 1 (Home) | [address] | + +--------+ +--------+ + + | Angelina Zuñiga | Person | Self [birth year] | [address] | | | al/Fam | | 1946 | [phone] | [place] | | | [place] | | | 1 (Home) | [address] | + +--------+ +--------+ + + Advance Directives + + + + + | Type | Date Recorded | Patient | Explanation | | | | Certified Phlebotomist | | + + + + + | Power of | | | | | Pre Billing Clinician | | | | + + + + + | Advance | | | | | Directive | | | | + + + + +
--- OUTSIDE RECORDS SUMMARY | ~2019-08-19 | XMS | Encounter Summary ---
Demographics + + + | Address | [address] | | | [place] [address] | + + + | Home Phone | | + + + | Preferred Language | Unknown | + + + | Marital Status | | + + + | Restorationist Affiliation | Unknown | + + + | Race | Unknown | + + + | Ethnic Group | Unknown | + + + Author + + + | Author | [facility] | | | and [place] | + + + | Organization | [facility] | | | and [...] [place] | | | | | [address] | | + + + + + | No Contacts | ECON | Unknown | | + + + + + Care Team Providers + +------+ + | Care Interior Design Professor Name | Role | Phone | + [...] + + | 10/12/ | Telephone | [facility] | Bernardino Hutton, | Other (Protocol for | | 2018 | | ORTHO SPORTS | [address] | therapy) | | | | MEDICINE [place] | [place] [address] | | | | | [address] | [phone] | | | | | [place], [place] | | | | | | [address] | | | | | | [phone] | | | +--------+ + + + [...] that she has an PT order to [facility] in [place] and they need Dr. Hutton protocol for the patients Right Hand. Please fax protocol to Attn Tammy. Please call patient back to let her know it has been faxed. doc umented in this encounter Plan of Treatment Not on filedocumented as of this encounter Visit Diagnoses Not on filedocumented in this encounter"
--- OUTSIDE RECORDS SUMMARY | ~2019-08-19 | XMS | Encounter Summary ---
Demographics + + + | Address | [address] | | | [place] [address] | + + + | Home Phone | | + + + | Preferred Language | Unknown | + + + | Marital Status | | + + + | Uatsdin Affiliation | Unknown | + + + | Race | Unknown | + + + | Ethnic Group | Unknown | + + + Author + + + | Author | [facility] | | | and [place] | + + + | Organization | [facility] | | [...] [place] | | | | | [address] | | + + + + + | No Contacts | ECON | Unknown | | + + + + + Care Team Providers + +------+ + | Care Regional Flatbed Truck Driver Name | Role | Phone | + +------+ + PCP | Unavailable | + +------+ + Encounter Details +--------+ + + + + | Date | Type | Department | Care Team | Description | +--------+ + + + + | 08/03/ | Hospital | [facility] | [place], | | | 2006 - | Encounter | MED CTR CANCER | Lux Goddard MD [address] | | | | | [facility] [place] [address] | [address] [place] | | | 08/14/ | | [place], [place] | [place] [address] | | | 2006 | | [address] | [phone] | | | | | [phone] | | | +--------+ + + + [...]
--- OUTSIDE RECORDS SUMMARY | ~2019-08-19 | XMS | Clinical Summary ---
Demographics + + + | Address | [address] | | | [place] [address] | + + + | Home Phone | | + + + | Preferred Language | Unknown | + + + | Marital Status | | + + + | Gnosticist Affiliation | Unknown | + + + | Race | Unknown | + + + | Ethnic Group | Unknown | + + + Author + + + | Author | [facility] | | | and [place] | + + + | Organization | [facility] | | | [...] [place] | | | | | [address] | | + + + + + | No Contacts | ECON | Unknown | | + + + + + Care Team Providers + +------+ + | Care Radio/Tv Technician Name | Role | Phone | + [...] | +---+ + + + +---+---+------+---+-------+ | Sweet Water-3 Fatty | CPDR Take 1 capsule | [...] +--------+ +---------+--------+ | MEDICARE | MEDICA | [id number] | | [phone] | | Medica | | | RE | | 011-Pr | 5 | | re | | | PART A | | esent | | | | | | AND B | | | | | | + +--------+ +--------+ +---------+--------+ | [employer] [place] | MUTUAL | [id number] | | [phone] | | Indemn | | | AND | | 011-Pr | 0 | | ity | | | UNITED | | esent | | | | | | [place] | | | | | | | | MDCR | | | | | | | | SUPPL | | | | | | + +--------+ +--------+ +---------+--------+ | MEDICARE | MEDICA | [id number] | | [phone] | | Medica | | | RE | | 011-Pr | 5 | | re | | | PART A | | esent | | | | | | AND B | | | | | | + +--------+ +--------+ +---------+--------+ | [employer] [place] | MUTUAL | [id number] | | [phone] | | Indemn | | | AND | | 018-Pr | 0 | | ity | | | UNITED | | esent | | | | | | [place] | | | | | | | [...] | | al/Fam | | 1946 | [phone] | [place] | | | yojana | | | 1 (Home) | [address] | + +--------+ +--------+ + + | Angelina Zuñiga | Person | Self | [birth year] | [address] | | | al/Fam | | 1946 | [phone] | [place] | | | [place] | | | 1 (Home) | [address] | + +--------+ +--------+ + + Advance Directives + + + + + | Type | Date Recorded | Patient | Explanation | | | | Registered Nurse Maternity | | + + + + + | Power of | | | | | Steel Shot Header Operator | | | | + + + + + | Advance | | | | | Directive | | | | + + + + +
--- OUTSIDE RECORDS SUMMARY | ~2019-08-19 | XMS | Encounter Summary ---
Demographics + + + | Address | [address] | | | [place] [address] | + + + | Home Phone | | + + + | Preferred Language | Unknown | + + + | Marital Status | | + + + | Zoroastrianism Affiliation | Unknown | + + + | Race | Unknown | + + + | Ethnic Group | Unknown | + + + Author + + + | Author | [facility] | | | and [place] | + + + | Organization | [facility] | | | and [...] [place] | | | | | [address] | | + + + + + | No Contacts | ECON | Unknown | | + + + + + Care Team Providers + +------+ + | Care Dry Drug Worker Name | Role | Phone | + +------+ + PCP | Unavailable | + +------+ + Encounter Details +--------+ + + + + | Date | Type | Department | Care Team | Description | +--------+ + + + + | 08/17/ | Hospital | [facility] | [place], | | | 2006 - | Encounter | MED CTR CANCER | Lux Goddard MD [address] | | | | | [place] [address] | [address] | | | 09/14/ | | [place], [place] | [place] [address] | | | 2006 | | [address] | [phone] | | | | | [phone] | | | +--------+ + + + [...]
--- OUTSIDE RECORDS SUMMARY | ~2019-08-19 | XMS | Encounter Summary ---
Demographics + + + | Address | [address] | | | [place] [address] | + + + | Home Phone | | + + + | Preferred Language | Unknown | + + + | Marital Status | | + + + | Mu-Ism Affiliation | Unknown | + + + | Race | Unknown | + + + | Ethnic Group | Unknown | + + + Author + + + | Author | [facility] | | | and [place] | + + + | Organization | [facility] | | | [...] [place] | | | | | [address] | | + + + + + | No Contacts | ECON | Unknown | | + + + + + Care Team Providers + +------+ + | Care Diving Supervisor Name | Role | Phone | + +------+ + PCP | Unavailable | + +------+ + Encounter Details +--------+ + + + + | Date | Type | Department | Care Team | Description | +--------+ + + + + | 08/17/ | Hospital | [facility] | Kend[place], | | | 2006 - | Encounter | MED CTR CANCER | Lux Goddard MD [address] | | | | | [place] [address] | [address] | | | 09/14/ | | [place], [place] | [place] [address] | | | 2006 | | [address] | [phone] | | | | | [phone] | | | +--------+ + + + [...]
--- OUTSIDE RECORDS SUMMARY | ~2019-08-19 | XMS | Encounter Summary ---
Demographics + + + | Address | [address] | | | [place] [address] | + + + | Home Phone | | + + + | Preferred Language | Unknown | + + + | Marital Status | | + + + | Mandaen Affiliation | Unknown | + + + [...] [place] | | | | | [address] | | + + + + + | No Contacts | ECON | Unknown | | + + + + + Care Team Providers + +------+ + | Care Inspector Printed Circuit Boards Name | Role | Phone | + +------+ + PCP | Unavailable | + +------+ + Encounter Details +--------+ + + + + | Date | Type | Department | Care Team | Description | +--------+ + + + + | 11/14/ | Hospital | [facility] | Kend[place], | | | 2009 | Encounter | MED CTR CANCER | Lux Goddard MD [address] | | | | | [place] [address] | [address] | | | | | [place], [place] | [place] [address] | | | | | [address] | [phone] | | | | | [phone] | | | +--------+ + + + [...]
--- OUTSIDE RECORDS SUMMARY | ~2019-08-19 | XMS | Encounter Summary ---
Demographics + + + | Address | [address] | | | [place] [address] | + + + | Home Phone | | + + + | Preferred Language | Unknown | + + + | Marital Status | | + + + | Episcopal Affiliation | Unknown | + + + | Race | Unknown | + + + | Ethnic Group | Unknown | + + + Author + + + | Author | [facility] | | | and [place] | + + + | Organization | [facility] | | | [...] [place] | | | | | [address] | | + + + + + | No Contacts | ECON | Unknown | | + + + + + Care Team Providers + +------+ + | Care Gag Writer Name | Role | Phone | + +------+ + | Kike Ragsdale MD | PCP | | + +------+ + Reason for Visit + + + | Reason | Comments | + + + | Follow-up | Right carpal tunnel syndrome | + + + Service/Procedure (Routine) +--------+--------+ + + + + | Status | Reason | Specialty | Diagnoses / | Referred By | Referred To | | | | | Procedures | Contact | Contact | +--------+--------+ + + + + | Closed | | | Diagnoses | Michael, | Brennen, | | | | | Ekaterina | Jeremy | Bernardino Cifuentes MD | | | | | tunnel | MD Rick | [address] | | | | | syndrome | [address] | [facility], | | | | | unspecified | [place] | [place] [address] | | | | | laterality | [place] [address] | Phone: | | | | | | [place], [place] | [phone] | | | | | | [address] | Fax: | | | | | | Phone: | [phone] | | | | | | [phone] | | | | | | | Fax: | | | | | | | [phone] | | +--------+--------+ + + + + Encounter Details +--------+---------+ + + + | Date | Type | Department | Care Team | Description | +--------+---------+ + + + | 12/22/ | Office | [facility] | Bernardino Hutton, | Right carpal tunnel | | 2019 | Visit | ORTHO SPORTS | MD Rehan HOLM | syndrome (Primary | | | | [facility] [place] | [place] [address] | Dx); Right hand | | | | [address] | [phone] | weakness | | | | [place], [place] | | | | | | [address] | | | | | | [phone] | | | +--------+---------+ + + + [...] documented in this encounter Progress Notes Bernardino Huttno MD - 12/22/2018 1:20 PM PSTFormatting of this note might be different earnestine m the original. [facility]: Orthopedic Surgery Patient Name:Angelina Zuñiga AGE: 73 y.o. :1945 CHIEF COMPLAINT: Follow-up (Right carpal tunnel syndrome) Right carpal tunnel HPI HISTORY OF PRESENT ILLNESS Ms. Zuñiga is a very pleasant female who is about veqzw-maw-q-half months status post revisi on right carpal tunnel release with tendon transfer. She is doing incredibly well with minim al pain, slight pain to pressure but this is minor. Overall dramatically improved. Sensation returning to the tips of the digits. No sign of complication. The problem is intermittent a nd in a very mild severity at this point. REVIEW OF SYSTEMS, comprehensive review of systems performed and is negative except for not ed above and below Review of Systems Past Medical History: Diagnosis Date Acid reflux Anesthesia "A LITTLE BIT GOES A LONG WAY." Anxiety Depression Malignant neoplasm (HCC) R BREAST / NONHODGKIN'S LYMPHOMA Methicillin resistant Staphylococcus aureus infection 2018 "I CARRY MRSA ON MY SKIN" PER YOKER (PER PT.) PT. SPRAYS BLEACH WATER ON SKIN ROSELYN LY Neuromyopathy (HCC) Visual disturbance READERS Past Surgical History: Procedure Laterality Date BREAST LUMPECTOMY Right 2013 CARPAL TUNNEL RELEASE Right 03/18/2018 Procedure: CARPAL TUNNEL RELEASE; Surgeon: Epifanio Sandoval DO; Location: [facility]; Service: Orthopedics; Laterality: Right; RT CTR CARPAL TUNNEL RELEASE Right 09/09/2018 Procedure: CARPAL TUNNEL RELEASE; Surgeon: Bernardino Hutton MD; Location: [facility]; Service: Orthopedics; Laterality: Right; with fat pad graft CHOLECYSTECTOMY 2007 KNEE SURGERY Bilateral TKA , 2014 on right, 2010 on left OTHER SURGICAL HISTORY 2008 ABDOMINAL [place] MESH REMOVAL - ALONG WITH HERNIA REPAIR OTHER SURGICAL HISTORY HARDWARE PRESENT - BILAT KNEES OTHER SURGICAL HISTORY Right 09/09/2018 TENDON TRANSFER - Procedure: TENDON TRANSFER/TRANSPLANT; Surgeon: Bernardino Hutton MD; Lo cation: [facility]; Service: Orthopedics; Laterality: Right; Right revision carpa l tunnel release, tendon transfer TONSILLECTOMY AND ADENOIDECTOMY A CHILD Allergies Allergen Reactions Latex Rash Prior to Admission medications Medication Sig Start Date End Date Taking? Authorizing Provider BIOTIN PO Take by mouth. Historical Provider, calcium-vitamin D (CALCIUM 600/VITAMIN D) 600-400 MG-UNIT TABS Take by mouth Daily. 2 DATA MIGRATION GABRIEL SR cholecalciferol (VITAMIN D-3 SUPER STRENGTH) 2000 UNITS TABS Take 2,000 Units by mouth Karon brink Patient taking differently: Take 5,000 Units by mouth Daily. 10/30/11 DATA MIGRATION GABRIEL S R diclofenac (VOLTAREN) 75 mg EC tablet 09/26/18 Historical Provider, DULoxetine HCl (CYMBALTA PO) Take 125 mg by mouth. Historical Provider, ferrous sulfate 325 mg tablet Take 325 mg by mouth daily (with breakfast). Historical Pr MD jose alfredo fluoxetine (PROZAC) 20 MG tablet Take 1-2 tablets by mouth daily Patient not taking: Reported on 10/24/2018 10/30/11 DATA MIGRATION GABRIEL SR Magnesium Gluconate 250 MG TABS Take 250 mg by mouth Daily. Patient not taking: Reported on 10/24/2018 10/30/11 DATA MIGRATION GABRIEL SR mesalamine (LIALDA) 1.2 G EC tablet Take 2 tablets by mouth once daily Patient not taking: Reported on 10/24/2018 10/30/11 DATA MIGRATION GABRIEL SR Multiple Vitamins-Minerals (CENTRUM SILVER) TABS Take 1 tablet by mouth once daily Patient not taking: Reported on 10/24/2018 10/30/11 DATA MIGRATION GABRIEL SR [place]-3 Fatty Acids (OMEGA 3 PO) CPDR Take 1 capsule by mouth daily Patient not taking: Reported on 10/24/2018 10/30/11 DATA MIGRATION GABRIEL SR omeprazole (PRILOSEC) 40 MG capsule Take 40 mg by mouth Daily. 10/30/11 DATA MIGRATION GABRIEL SR Potassium Gluconate 550 MG TABS Take 550 mg by mouth Daily. Patient not taking: Reported on 10/24/2018 10/30/11 DATA MIGRATION GABRIEL SR History reviewed. No pertinent family history. Social History Socioeconomic History Marital status: Spouse [...] Use Smoking status: Former Smoker Packs/day: 1.00 Smokeless tobacco: Never Used Substance and Sexual Activity Alcohol use: Not on file Comment: Alcoholic Drinks/day: ONE TO TWO DRINKS PER WEEK Drug use: Not on file Comment: Drug use: No Sexual activity: Not on file Other Topics Concern Not on file Social History Narrative Not on file PHYSICAL EXAM Vital Signs: BP 112/70 | Pulse 77 | Resp 16 | Ht 1.676 m (5' 6") | Wt 85 kg (187 lb 6.4 oz) | SpO2 97% | BMI 30.25 kg/m Physical Exam Well developed well nourished patient No acute distress Alert and oriented x3 Head and neck are normal Oropharynx is clear Gaze is conjugate Breathing is unlabored Heart is regular rate and rhythm Ortho Exam Skin is clean, dry and intact Brisk cap refill 2+ pulses No deficits noted Motor and sensation are intact No masses and no lymphadenopathy Normal sweat patterns No hyperreflexia Negative hurley's maneuver Compartments are soft and compressible Able to oppose the thumb without any difficulty PROBLEM LIST Encounter Diagnoses Name Primary? Right carpal tunnel syndrome Yes Right hand weakness ASSESSMENT & PLAN At this point, recommend conservative care. No operative indications. All patient's questions answered. Risks and benefits of conservative care reviewed. I am very pleased with how the patient is doing. I think her tendon transfer is going well. She may have activity as tolerated and I am incredibly pleased with her progress. Documented by Anu. @[email or web address]@ Primary Care Physician: MD Bernardino Tolbert MD documented in this en counter Plan of Treatment Not on filedocumented as of this encounter Visit Diagnoses + + | Diagnosis | + + | Right carpal tunnel syndrome - Primary Carpal tunnel syndrome | + + | Right hand weakness Muscle weakness (generalized) | + + documented in this encounter
--- OUTSIDE RECORDS SUMMARY | ~2019-08-19 | XMS | Encounter Summary ---
Demographics + + + | Address | [address] | | | [place] [address] | + + + | Home Phone | | + + + | Preferred Language | Unknown | + + + | Marital Status | | + + + | Yazdanism Affiliation | Unknown | + + + | Race | Unknown | + + + | Ethnic Group | Unknown | + + + Author + + + | Author | [facility] | | | and [place] | + + + | Organization | [facility] | | | [...] [place] | | | | | [address] | | + + + + + | No Contacts | ECON | Unknown | | + + + + + Care Team Providers + +------+ + | Care Cutter And Presser Name | Role | Phone | + +------+ + PCP | Unavailable | + +------+ + Encounter Details +--------+ + + + + | Date | Type | Department | Care Team | Description | +--------+ + + + + | 06/22/ | Hospital | [facility] | Kendy, | | | 2006 | Encounter | MED CTR XRAY [address] | Lux Goddard MD [address] | | | | | [place] | [address] [place] | | | | | [place] [address] | [place] [address] | | | | | [phone] | [phone] | | | | | | | [...]
--- OUTSIDE RECORDS SUMMARY | ~2019-08-19 | XMS | Encounter Summary ---
Demographics + + + | Address | [address] | | | [place] [address] | + + + | Home Phone | | + + + | Preferred Language | Unknown | + + + | Marital Status | | + + + | Orthodoxy Affiliation | Unknown | + + + | Race | Unknown | + + + | Ethnic Group | Unknown | + + + Author + + + | Author | [facility] | | | and [place] | + + + | Organization | [facility] | | [...] [place] | | | | | [address] | | + + + + + | No Contacts | ECON | Unknown | | + + + + + Care Team Providers + +------+ + | Care Boiler Tube Blower Name | Role | Phone | + [...] | | syndrome | [address] | [facility], | | | | | unspecified | [place] | [place] [address] | | | | | laterality | [address] [address] | Phone: | | | | | | [place], [place] | [phone] | | | | | | [address] | Fax: | | | | | | Phone: | [phone] | | | | | | [phone] | | | | | | | Fax: | | | | | | | [phone] | | +--------+--------+ + + + + Encounter Details +--------+---------+ + + + | Date | Type | Department | Care Team | Description | +--------+---------+ + + + | 10/24/ | Office | [facility] | Bernardino Hutton, | Right carpal tunnel | | 2019 | Visit | [facility]O [facility]TS | MD Rehan HOLM | syndrome (Primary | | | | [facility] [place] | [place] [address] | Dx); Right hand | | | | [address] | [phone] | weakness; [place] | | | | [place], [place] | | atrophy, right | | | | [address] | | | | | | [phone] | | | +--------+---------+ + + + [...] might be different fro m the original. [facility]: Orthopedic Surgery Patient Name:Angelina Zuñiga [...] "I CARRY MRSA ON MY SKIN" PER REGIONAL MERCHANDISING MANAGER (PER PT.) PT. SPRAYS BLEACH WATER ON SKIN [place] LY Neuromyopathy (HCC) Visual disturbance READERS Past Surgical History: Procedure Laterality Date BREAST LUMPECTOMY Right 2013 CARPAL TUNNEL RELEASE Right 03/18/2018 Procedure: CARPAL TUNNEL RELEASE; Surgeon: Epifanio Sandoval DO; Location: [facility]; Service: Orthopedics; Laterality: Right; RT CTR CARPAL TUNNEL RELEASE Right 09/09/2018 Procedure: CARPAL TUNNEL RELEASE; Surgeon: Bernardino Hutton MD; Location: [facility]; Service: Orthopedics; Laterality: Right; with fat pad graft CHOLECYSTECTOMY 2007 KNEE SURGERY Bilateral TKA , 2013 on right, 2010 on left OTHER SURGICAL HISTORY 2008 ABDOMINAL [place] MESH REMOVAL - ALONG WITH HERNIA REPAIR OTHER SURGICAL HISTORY HARDWARE PRESENT - BILAT KNEES OTHER SURGICAL HISTORY Right 09/09/2018 TENDON TRANSFER - Procedure: TENDON TRANSFER/TRANSPLANT; Surgeon: Bernardino Hutton MD; Lo cation: [facility]; Service: Orthopedics; Laterality: Right; Right revision carpa [...] once daily 10/30/11 DATA MIGRATION GABRIEL SR [place]nel[place]-3 Fatty Acids (OMEGA 3 PO) CPDR Take [...] MD This document has been prepared with [employer] voice recognition system. The possibility of "s ound alike" dial printer errors, and additions, or deletions may occur. [...]
--- OUTSIDE RECORDS SUMMARY | ~2019-08-19 | XMS | Encounter Summary ---
Demographics + + + | Address | [address] | | | [place] [address] | + + + | Home Phone | | + + + | Preferred Language | Unknown | + + + | Marital Status | | + + + | Amish Affiliation | Unknown | + + + | Race | Unknown | + + + | Ethnic Group | Unknown | + + + Author + + + | Author | [facility] | | | and [place] | + + + | Organization | [facility] | | | [...] [place] | | | | | [address] | | + + + + + | No Contacts | ECON | Unknown | | + + + + + Care Team Providers + +------+ + | Care Mva Still Operator Name | Role | Phone | [...] | | syndrome | [address] | [facility], | | | | | unspecified | [place] | [place] [address] | | | | | laterality | [address] [address] | Phone: | | | | | | [place], [place] | [phone] | | | | | | [address] | Fax: | | | | | | Phone: | [phone] | | | | | | [phone] | | | | | | | Fax: | | | | | | | [phone] | | +--------+--------+ + + + + Encounter Details +--------+---------+ + + + | Date | Type | Department | Care Team | Description | +--------+---------+ + + + | 12/22/ | Office | [facility] | Bernardino Hutton, | Right carpal tunnel | | 2019 | Visit | OR[facility]O [facility]TS | MD Rehan HOLM | syndrome (Primary | | | | [facility] [place] | [place] [address] | Dx); Right hand | | | | [address] | [phone] | weakness | | | | [place], [place] | | | | | | [address] | | | | | | [phone] | | | +--------+---------+ + + + [...] encounter Progress Notes Bernardino Hutton MD - 12/22/2018 1:20 PM PSTFormatting of this note might be different earnestine m the original. [facility]: Orthopedic Surgery Patient Name:Angelina Zuñiga AGE: 73 y.o. :1945 CHIEF COMPLAINT: Follow-up (Right carpal tunnel syndrome) Right carpal tunnel HPI HISTORY OF PRESENT ILLNESS Ms. Zuñiga is a very pleasant female who is about gibux-vzf-f-half months status post revisi on right carpal [...] "I CARRY MRSA ON MY SKIN" PER CURING BIN OPERATOR (PER PT.) PT. SPRAYS BLEACH WATER ON SKIN ROSELYN LY Neuromyopathy (HCC) Visual disturbance READERS Past Surgical History: Procedure Laterality Date BREAST LUMPECTOMY Right 2013 CARPAL TUNNEL RELEASE Right 03/18/2018 Procedure: CARPAL TUNNEL RELEASE; Surgeon: Epifanio Sandoval DO; Location: [facility]; Service: Orthopedics; Laterality: Right; RT CTR CARPAL TUNNEL RELEASE Right 09/09/2018 Procedure: CARPAL TUNNEL RELEASE; Surgeon: Bernardino Hutton MD; Location: [facility]; Service: Orthopedics; Laterality: Right; with fat pad graft CHOLECYSTECTOMY 2007 KNEE SURGERY Bilateral TKA , 2014 on right, 2010 on left OTHER SURGICAL HISTORY 2008 ABDOMINAL [place] MESH REMOVAL - ALONG WITH HERNIA REPAIR OTHER SURGICAL HISTORY HARDWARE PRESENT - BILAT KNEES OTHER SURGICAL HISTORY Right 09/09/2018 TENDON TRANSFER - Procedure: TENDON TRANSFER/TRANSPLANT; Surgeon: Bernardino Hutton MD; Lo cation: [facility]; Service: Orthopedics; Laterality: Right; Right revision carpa [...] on 10/24/2018 10/30/11 DATA MIGRATION GABRIEL SR [place]-3 Fatty Acids (OMEGA 3 PO) CPDR Take [...]
--- OUTSIDE RECORDS SUMMARY | ~2019-08-19 | XMS | Encounter Summary ---
Demographics + + + | Address | [address] | | | [place] [address] | + + + | Home Phone | | + + + | Preferred Language | Unknown | + + + | Marital Status | | + + + | Gnosticism Affiliation | Unknown | + + + | Race | Unknown | + + + | Ethnic Group | Unknown | + + + Author + + + | Author | [facility] | | | and [place] | + + + | Organization | [facility] | | | and [...] [place] | | | | | [address] | | + + + + + | No Contacts | ECON | Unknown | | + + + + + Care Team Providers + +------+ + | Care Lawn Technician Name | Role | Phone | + +------+ + PCP | Unavailable | + +------+ + Encounter Details +--------+ + + + + | Date | Type | Department | Care Team | Description | +--------+ + + + + | 06/02/ | Hospital | [facility] | Kendy, | | | 2006 - | Encounter | MED CTR CANCER | Lux Goddard MD [address] | | | | | [place] [address] | [address] [place] | | | 06/14/ | | [place], [place] | [place] [address] | | | 2006 | | [address] | [phone] | | | | | [phone] | | | +--------+ + + + [...]
[2019-08-19] MEDS ORDERED: DULOXETINE HCL60 MG PO (12:06)
--- NOTE | 2019-08-19 16:40 | NUR ---
pt ARRIVED TO FLOOR TRANSPORTED BY THIS RN. pt ON 4L O2 VIA NC. O2 INCREASED TO 6L WHILE pt MOVED OVER FROM STRETCHER TO BED. DESATTED TO MID 80S. CHANGED TO OXYMASK 10L, pt RECOVERED WITH SATS REMAINING IN THE MID 90S ON 6L O2 VIA OXYMASK. RT IN ROOM TO ASSESS. MOVED SAT MONITOR TO TOE FOR BETTER READING. THIS RN REMAINS AT BEDSIDE.
--- NOTE | 2019-08-19 17:18 | EKG ---
[facility] [address] [facility] [place] [address] Signed Sinus rhythm with occasional premature ventricular complexes and premature atrial complexes Nonspecific ST abnormality Prolonged QT Abnormal ECG When compared with ECG of 15-MAR-2019 15:48, premature ventricular complexes are now present premature atrial complexes are now present Nonspecific T wave abnormality no longer evident in Inferior leads Confirmed by OMAIRA MADRIGAL MD ([id number]) on 08/19/2019 5:18:35 PM Electronically Signed By: OMAIRA MADRIGAL MD 08/19/19 1718 PATIENT NAME: MICHEL GREEN Electrocardiogram DATE OF : 45 PHYSICIAN: OMAIRA MADRIGAL MD REPORT #: [id number] REPORT IS CONFIDENTIAL AND NOT TO BE RELEASED WITHOUT AUTHORIZATION
[2019-08-19] MEDS ORDERED: CYMBALTA20 MG PO (17:23)
--- NOTE | 2019-08-19 18:00 | NUR ---
ASSESSMENT DONE. DID NOT AUSCULATATE DUE TO PAPR. pt DENIED CHEST PAIN AND PAIN IN GENERAL. REPORTED NOT HAVING AN APPETITE FOR THE LAST 4 DAYS, HAS NOT TAKEN MEDICATIONS IN ABOUT A WEEK. ALERT AND ORIENTED. REPORTED "A COUPLE" EPISODES WHERE SHE FAINTED BUT DID NOT FALL "I KNEW IT WAS COMING SO I SAT DOWN" TEMPERATURE ELEVATED. UP TO BSC, O2 INCREASED A PREVENTATIVE MEASURE. LIQUID STOOL WITH URINE MIXED. PROVIDED WITH ICE AND SODA. CALL LIGHT WITHIN REACH. 6L O2 VIA OXYMASK TO MAINTAIN SATS. NO REQUESTS AT THIS TIME.
--- NOTE | 2019-08-19 20:00 | NUR ---
PATIENT RESTING IN BED. PATIENT DENIES FEELING SOB AT REST. O2 SAT 90% ON 6L OXYMASK. PATIENT REPORTS DISCOMFORT DUE TO DRYING FROM THE O2, CHAP STICK AND WATER PROVIDED. UNABLE TO LISTEN TO LUNG SOUNDS DUE TO PAPR. ORAL TEMP. PATIENT DENIES PAIN OR NAUSEA. SCHEDULED MEDS PROVIDED. SECOND IV SITE ESTABLISHED. IV FLUIDS PER ORDER. GALINDO PLACED DUE TO PATIENT'S ACTIVITY INTOLERANCE. LATEX FREE GALINDO USED. PATIENT TOLERATED WELL. 200 MLS URINE OUT. LIGHTS DIMMED PER REQUEST. CALL LIGHT IN REACH.
--- NOTE | 2019-08-19 21:00 | NUR ---
PATIENT PLACED ON BEDPAN. NO BM. ASSISTED PATIENT TO REPOSITION IN BED FOR COMFORT. PATIENT SWITCHED TO 6L NC WITH HUMIDIFICATION. TOLERATING WELL.
--- NOTE | 2019-08-20 04:00 | NUR ---
PATIENT APPEARED TO BE SLEEPING WHEN RN ENTERED ROOM. WAKES EASILY TO VOICE. DENIES FEELING SOB OR PAIN. REPORTS BEING DIAPHORETIC, WHICH "HAPPENS ALL THE TIME". FRESH GOWN PROVIDED. COTTON BLANKET PROVIDED PER REQUEST. URINE OUTPUT QS, AVERAGE 50 ML /HR OF CONCENTRATED URINE. PATIENT REPORTS FEELING THAT SHE MIGHT BE ABLE TO EAT THIS MORNING AND HAS SLEPT BETTER TONIGHT THAN THE LAST SEVERAL NIGHTS. PATIENT DENIED ANY OTHER NEEDS. 02 SAT CONSISTENTLY 95-07% ON 6L NC. TITRATED TO 5L.
--- NOTE | 2019-08-20 06:15 | NUR ---
MORNING LABS DRAWN. ASSISTED PATIENT TO REPOSITION TO LEFT SIDE. PATIENT FEELS TIRED THIS MORNING. NOT SOB. O2 SAT 88-90% ON 5L NC. INCREASED BACK TO 6L NC. PATIENT REPORTS A POST NASAL DRIP AND ACID REFLUX THAT IS CAUSING HER TO COUGH. DISCUSSED OPTIONS AND ASSURED PATIENT WE WOULD REPORT TO . BREAKFAST MANU PROVIDED.
--- NOTE | 2019-08-20 07:03 | NUR ---
PATIENT CONTINUES TO DESAT DUE TO FREQUENT DRY COUGHING. PATIENT PLACED ON 8L OXY MASK IN ADDITION TO THE NC. PATIENT REQUEST TO KEEP NC FOR THE HUMIDIFICATION. INCREASED O2 SAT TO 90%.
--- NOTE | 2019-08-20 07:08 | NUR ---
DISCUSSED PATIENT'S COUGH WITH MD. NEW ORDERS RECIEVED.
--- NOTE | 2019-08-20 07:30 | NUR ---
RECEIVED REPORT FROM LIGHTNING PROTECTION INSTALLER. pt IN BED COUGHING. ON 6L VIA NC AND 8L VIA OXYMASK SATS 90%. CALL LIGHT WITHIN REACH.
[2019-08-20] MEDS ORDERED: DULOXETINE HCL60 MG PO (08:10)
--- NOTE | 2019-08-20 09:00 | NUR ---
IN pt ROOM. PRN MEDICATION GIVEN FOR COUGH (SEE MAR). LABS DRAWN. ASSESSMENT DONE. pt DENIES PAIN AND SOB AT THIS TIME. GALINDO CARE DONE. HYPEROXYGENATED PRIOR TO pt MOVING. pt ABLE TO MOVE UP IN BED. O2 SATS DROPPED TO HIGH 80S THEN QUICKLY RETURNED TO 90S. BREAKFAST PROVIDED. pt ON 6L VIA NC AND 10L OXYMASK. pt DID NOT WANT TO USE OXYMASK SO SHE COULD EAT. ENCOURAGED pt TO TAKE A FEW BITES AND THEN BREATH WITH THE OXYMASK TO KEEP HER SATS UP. WILL CONTINUE TO MONITOR. ITEMS FOR MORNING CARES PROVIDED. CALL LIGHT WITHIN REACH.
--- NOTE | 2019-08-20 09:56 | NUR ---
ROUNDED ON pt. SITTING IN BED ON PHONE, TOOTHBRUSH IN MOUTH. OXYMASK ON FOREHEAD. NC IN PLACE. SAT 89% TO 90%. NO REQUESTS AT THIS TIME. ENCOURAGED pt TO USE OXYMASK. pt NODDING IN UNDERSTANDING. CALL LIGHT WITHIN REACH.
--- NOTE | 2019-08-20 10:17 | NUR ---
O2 SATS DOWN TO 85% pt SITTING IN BED STATED "I TOOK MY NASAL CANNULA OFF SO I COULD BLOW MY NOSE." ENCOURAGED pt TO REPLACE CANNULA AND USE OXYMASK. SATS INCREASED WITH OXYGEN.
[2019-08-20] MEDS ORDERED: B COMPLEX1 EACH PO (10:38)
[2019-08-20] MEDS ORDERED: IRON325 M1 PO (10:38)
[2019-08-20] MEDS ORDERED: VITAMIN D3250 MC1 PO (10:38)
[2019-08-20] MEDS ORDERED: CALCIUM + VITA1 EACH PO (10:39)
--- NOTE | 2019-08-20 10:39 | NUR ---
MED REC COMPLETE
--- NOTE | 2019-08-20 10:42 | NUR ---
IN TO PROVIDE CARES. pt FINISHED WITH MORNING CARES. OXY MASK ON AND NASAL CANNULA. pt DENIES SOB AT THIS TIME. pt REQUESTED TO TAKE A NAP NO REQUESTS AT THIS TIME. CALL LIGHT WITHIN REACH.
--- NOTE | 2019-08-20 10:59 | NUR ---
MD CALLED AND NOTIFIED OF pt REQUIRING MORE O2 AND SATS IN THE LOW 90'S. OKAY TO START VAPOTHERM, NEED AN ABG PRIOR. RT NOTIFED.
--- NOTE | 2019-08-20 11:34 | NUR ---
RT IN ROOM TO DRAW ABG. pt PRONED. O2 TITRATED DOWN TO 6L NC AND 2L OXYMASK. O2 SAT 99 TO 100%. NO REQUESTS AT THIS TIME. CALL LIGHT WITHIN REACH. IV JULIANA.
--- NOTE | 2019-08-20 12:23 | NUR ---
SPOKE WITH pt OKAY TO CALL HER , MARIA TERESA, . SPOKE WITH MARIA TERESA, HE WILL LOOK FOR HER ADVANCED DIRECTIVE. HE STATED "IT SAYS SHE DOES NOT WANT TO BE KEPT ALIVE ARTICIFIALLY." REQUESTED THAT HE BRING A COPY OF THE PAPERWORK TO THE HOSPITAL.
--- NOTE | 2019-08-20 12:30 | NUR ---
CALLED pt's DAUGHTER, OKAY FOR MARIA TERESA TO SALVAGE CUTTER ITEMS TO BE LAUNDERED. SENDING 1 PAIR OF PANTS AND UNDERWEAR. LAY OUT AND DETAIL DRAFTER INFORMED.
--- NOTE | 2019-08-20 13:10 | NUR ---
STEFANIE, pt's , CALLED. HE STATED THAT HE IS BRINGING UP THE ADVANCED DIRECTIVE AND SOME ITEMS FOR THE pt. HE QUESTIONED IF THE pt SHOULD BE TRANSFERRED TO A COVID UNIT AT A LARGER HOSPITAL. REASSURED HIM, HE WOULD LIKE TO TALK TO DR MADRIGAL AT SOME POINT TO BETTER UNDERSTAND WHAT IS GOING ON.
--- NOTE | 2019-08-20 13:33 | NUR ---
PT REPORT RECIEVED. CARE OF PT ASSUMED AT THIS TIME.
--- NOTE | 2019-08-20 14:52 | NUR ---
IN ROOM FOR ASSESSMENT. PT IN SIDE LYING POSITION. SATURATIONS AT 96 PERCENT ON 6 L NC AND 2 L OM. PT URINE OUTPUT IS MINIMAL. PT DENIES NAUSEA OR SHORTNESS OF BREATH AT THIS TIME. ASSISTED PT ONTO BACK, REARRANGED CORDS, AND DISCUSSED PLAN OF CARE FOR THE EVENING. PT REQUESTS THAT DR MADRIGAL BE INFORMED THAT HER WOULD LIKE TO DISCUSS PTS PLAN OF CARE. PT IS NOW LAYING ON BACK, SPO2 AT 92 PERCENT ON A TOTAL OF 8L. RESPIRATIONS EVEN AND UNLABORED. CALL LIGHT WITHIN REACH. NO FURTHER NEEDS AT THIS TIME.
--- NOTE | 2019-08-20 15:37 | NUR ---
DR. MADRIGAL CALLED AND UPDATED ON PT LOW URINE OUTPUT AND UPDATED ON HUSBANDS REQUEST TO BE CALLED. NO NEW ORDERS. DR MADRIGAL ADVISED THAT SHE WILL BE UNABLE TO CALL AND UPDATE UNTIL THIS EVENING.
--- NOTE | 2019-08-20 16:00 | NUR ---
RT IN ROOM AT THIS TIME TO PLACE PT ON VAPOTHERM.
--- NOTE | 2019-08-20 16:17 | NUR ---
PT NOW ON VAPOTHERM AT 30 L AND 96 PECENT. SATURATIONS AT 99 PERCENT AT THIS TIME.
--- NOTE | 2019-08-20 16:32 | NUR ---
PT ORDERED DINNER, UP TALKING ON THE PHONE. SATURATIONS MAINTAINED IN THE MID TO HIGH 90S WHILE TALKING. NO NEEDS AT THIS TIME.
--- NOTE | 2019-08-20 17:59 | NUR ---
IN ROOM TO HELP PT SET UP FOR DINNER. PT RESTING AT 100 PERCENT ON THE VAPOTHERM AT THIS TIME. CALL LIGHT WITHIN REACH. DENIES FURTHER NEEDS AT THIS TIME.
--- NOTE | 2019-08-20 21:00 | NUR ---
PATIENT READY TO DIM LIGHTS FOR BED. PATIENT DENIES FEELING SOB. UNABLE TO LISTEN TO LUNG SOUNDS AT THIS TIME DUE TO PAPR. PATIENT DENIES COUGH THIS EVENING. ATE 75% OF DINNER. TOLERATING VAPO THERM AT 30 L 96% FiO2. TITRATED TO 90% Fi02. PATIENT REPORTS HAVING DISCUSSED OPTIONS WITH HER AND THINKS SHE WOULD WANT TO BE INTUBATED IF NEEDED. WILL RELAY THIS TO . ALL QUESTIONS ANSWERED. GALINDO EMPTIED, MINIMAL OUTPUT, 100 MLS DARK MARCELLUS COLORED URINE. VS STABLE. PATIENT DENIES ANY NEEDS AT THIS TIME. CALL LIGHT IN REACH.
--- NOTE | 2019-08-20 22:35 | NUR ---
PATIENT APPEARS TO BE SLEEPING SOUNDLY. IV ABX STARTED PER ORDER. SITE WNL.
--- NOTE | 2019-08-20 23:20 | NUR ---
PATIENT REPORTS DIFFICULTY SLEEPING. REQUESTING TO TURN OFF THE VAPOTHERM. EDUCATION PROVIDED. PATIENT VERBALIZED UNDERSTANDING FOR IMPORTANCE OF O2 THERAPY. EAR PLUGS PROVIDED. PATIENT HAS BEEN COUGHING. ROBITUSSIN GIVEN. PATIENT TURNED TO LEFT SIDE. O2 SAT 95% ON VAPOTHERM 30L 90% Fi02.
--- NOTE | 2019-08-21 01:45 | NUR ---
IV ABX FINISHED. PATIENT RESTING ON RIGHT SIDE. O2 SAT 100% ON 90% Fi02 PER VAPOTHERM. TITRATED TO 85% Fi02.
--- NOTE | 2019-08-21 02:35 | NUR ---
SPO2 MONITOR ALARMING, 80%. pt LYING ON SIDE, RN IN ROOM. VAPOTHERM REMOVED BY pt. EDUCATION PROVIDED. pt VERBALIZES UNDERSTANDING TO KEEP VAPOTHERM ON. TITRATED BACK UP TO 90% FIO2. SPO2 93% AT THIS TIME. CALL LIGHT IN REACH, pt DENIES ADDITIONAL REQUESTS.
--- NOTE | 2019-08-21 05:30 | NUR ---
PATIENT APPEARED TO BE SLEEPING. WOKE WHEN RN ENTERED. PATIENT IS COUGHING MILDLY. DENIES NEED FOR ROBITUSSIN. 100% O2 SAT ON 90% Fi02. TITRATED 80% Fi02. LABS DRAWN. PATIENT ATTEMPTS TO REMOVE NC. PATIENT STATES "HOW MUCH LONGER DO I HAVE TO WEAR THIS? I CAN'T WEAR THIS ALL DAY". DISCUSSED HIGH FLOW O2 NEEDS AT THIS TIME AND IMPORTANCE FOR MAINTAINING O2 GREATER THAN 90%. PATIENT APPEARS FRUSTERATED. ENCOURAGED PATIENT TO BE PATIENT DURING THIS TIME. PATIENT DENIES ANY NEEDS AT THIS TIME. IV ABX STARTED. GALINDO EMPTIED. CALL LIGHT IN REACH.
--- NOTE | 2019-08-21 07:15 | NUR ---
Report received, orders acknowledged.
--- NOTE | 2019-08-21 09:30 | NUR ---
Patient laying in bed with eyes closed, rouses easily to voice. Vital signs taken, assessment complete. Patient on vapotherm at 80% FiO2 and 30L, SpO2 of 93%. Patient up to BSC with SBA, unable to produce BM. Returns to bed, SpO2 decreased to 85%. Vapotherm settings increased to 100% FiO2 and 40L. SpO2 slowly climbs up to 95%. AM medications given. Patient reports poor appetite, jello provided. Water refreshed and cold cloth given to patient to wash face. Patient helped to prone position with pillow under hips. Vapotherm settings reduced to 80% FiO2 and 30L. RT in room during prone positioning. Patient denies further needs, call light within reach.
--- NOTE | 2019-08-21 12:07 | NUR ---
Patient laying in prone position, in reverse trendelenburg. Vapotherm settings at 80% FiO2, 30L, and SpO2 of 95-99%. Patient sleeping, respirations even and unlabored. RR of 26. Call light within reach.
--- NOTE | 2019-08-21 12:45 | NUR ---
Patient laying in prone position in reverse trendelenburg. Vapotherm settings at 30L, 80% FiO2, and SpO2 of 95-98%. Vital signs taken, assessment complete. IV abx infusing, IV sites patent. Patient up to BSC with SBA, states "I feel like I need to have a bowel movement." Patient unable to produce BM. Patient returned to bed, placed in prone position with reverse trendelenburg. SpO2 of 98-100%. Patient denies needs at this time, call light within reach.
--- NOTE | 2019-08-21 14:15 | NUR ---
Patient laying in prone position in reverse trendelenburg. Vapotherm settings at 30L, 80% Fi02, and SpO2 of 100%. Respirations even and unlabored, HR in the 80's. Call light within reach.
--- NOTE | 2019-08-21 15:24 | NUR ---
SPOKE WITH PATIENTS DAUGHTER KATERINA SMITH [phone] BY PHONE. SHE STATES PATIENT LIVES WITH [employer]. PATIENT DRIVES. IS RETIRED. PATIENT USES NO DME BUT HAS A WALKER AND CANE AT HOME FROM PREVIOUS KNEE SURGERY. SHE STATES THEY HAVE NO FINANCIAL PROBLEMS WITH AFFORDING MEDICATIONS, FOOD OR UTILITIES. SHE STATES PATIENT IS PLANNING ON GOING HOME AT DISCHARGE. SHE STATES IS QUARANTING AND THEY KNOW SHE WILL NEED TO CONTINUE ONCE HOME. SHE STATES THEY DON'T HAVE ANY QUESTIONS AT THIS TIME. EXPRESSED FAMILY CAN CALL NURSES STATION ANYTIME WITH CONCERN, QUESTIONS OR TO CHECK ON PATIENT. CM WILL CONTINUE TO FOLLOW.
--- NOTE | 2019-08-21 15:32 | NUR ---
Patient laying on left side, respirations even and unlabored. Vapotherm settings at 30L, 80% Fi02, with an SpO2 of 99%. HR in the 70's. Call light within reach.
--- NOTE | 2019-08-21 17:00 | NUR ---
Patient laying in prone position in reverse trendelenburg. Vapotherm settings at 30L, 80% Fi02, SpO2 of 98%. Vital signs taken, assessment complete. Bed bath given, new linens and gowns provided. Patient up to chair with SBA. Dinner delivered. Patient denies pain and nausea. Water refreshed. Denies further needs at this time, call light within reach.
--- NOTE | 2019-08-21 18:45 | NUR ---
Patient up to BSC with SBA, unable to produce BM. Returns to bed in prone position in reverse trendelenburg. Vapotherm settings at 30L, 80% Fi02, with an Sp02 of 97%. Denies further needs at this time, call light within reach.
--- NOTE | 2019-08-21 20:34 | NUR ---
SHIFT REPORT RECEIVED FROM TIMO SMITH. ASSESSMENT COMPLETED, AT THIS TIME, LIMITED DUE TO PAPR PPE. PT IS RESTING IN PRONE POSITION, SLIGHTLY TIPPED ON LEFT SIDE. DENIES PAIN, INCLUDING CHEST PAIN. HR SINUS RHYTHM PER MONITOR. DENIES SOB, REMAINS ON VAPOTHERM AT 30L @ 80%, RR: 20-30. DENIES NAUSEA. SKIN GROSSLY INTACT, NO EDEMA NOTED. IV SITES INTACT AND PATENT, SALINE LOCKED. GALINDO IN PLACE, DRAINING FREELY, MARCELLUS URINE. PERSONAL FAN AND FRESH ICE WATER PROVIDED. TEMP CURRENTLY 99.1 ORALLY. DISCUSSED PLAN OF CARE FOR THE NIGHT WITH PT, DENIES QUESTIONS OR CONCERNS AT THIS TIME. NO FURTHER REQUESTS, CALL LIGHT WITHIN REACH.
--- NOTE | 2019-08-21 22:29 | NUR ---
IN TO START MERREM INFUSION. IV SITES REMAIN INTACT AND PATENT. PT REPOSITIONED HERSELF FROM LEFT SIDE BACK TO SUPINE, BED REMAINS IN REVERSE [place]. VITAL SIGNS REMAIN STABLE. GALINDO EMPTIED. VAPOTHERM CONTINUES AT 30L @ 80%, PT TOLERATING WELL. PT PROVIDED WITH BLANKETS PER REQUEST, NO FURTHER NEEDS AT THIS TIME, CALL LIGHT AND BELONGINGS WITHIN REACH.
--- NOTE | 2019-08-22 00:24 | NUR ---
PT SLEEPING, NO APPARENT DISTRESS. RESPIRATIONS EVEN AND UNLABORED, VAPOTHERM REMAINS IN PLACE. SPO2 100% ON 80%, DECREASED FIO2 TO 75%, REMAINS AT 30L. RHYTHM REMAINS SINUS WITH PVC'S ON MONITOR. IVF INFUSING WNL. PT CURRENTLY PRONED, TILTED TO RIGHT SIDE, BED REMAINS IN REVERSE [place]. GALINDO EMPTIED, CONTINUES TO PUT OUT ~75ML EVERY 2 HOURS, REMAINS MARCELLUS IN COLOR. CALL LIGHT WITHIN REACH. WILL ALLOW FOR REST AND CONTINUE TO MONITOR.
--- NOTE | 2019-08-22 02:17 | NUR ---
PT APPEARS TO BE SLEEPING AT THIS TIME, NO APPARENT DISTRESS. BED REMAINS IN REVERSE [place], PT IS PRONE, TIPPED TO RIGHT SIDE. VAPOTHERM REMAINS IN PLACE, 30L @ 75%. SPO2: 99%. WILL ALLOW FOR REST AND CONTINUE TO MONITOR.
--- NOTE | 2019-08-22 03:50 | NUR ---
PT CURRENTLY SLEEPING, NO APPARENT DISTRESS. RESPIRATIONS EVEN AND UNLABORED, VAPOTHERM IN PLACE, FIO2 DECREASED TO 70%, REMAINS AT 30L. HR SINUS PER MONITOR. IV ABX INFUSION COMPLETED, SALINE LOCKED, IV SITES INTACT. PT CURRENTLY POSITIONED ON LEFT SIDE, BED REMAINS IN REVERSE [place]. GALINDO EMPTIED. CALL LIGHT WITHIN REACH, WILL ALLOW FOR REST AND CONTINUE TO MONITOR.
--- NOTE | 2019-08-22 05:56 | NUR ---
IN TO START MERREM INFUSION AND DRAW MORNING LABS. PT BECAME VERY SHORT OF BREATH AFTER ROLLING FROM PRONE POSITION TO SUPINE, DESATURATED TO 75% VAPOTHERM INCREASED TO 40L @ 90% WHILE I DEBRA LABS: ABOUT 5 MINUTES. VAPOTHERM THEN TITRATED TO 30L @ 85%. PT REMAINS SUPINE, HOB ELEVATED. SPO2 CURRENTLY 91-92%. PT DENIES NEEDS AT THIS TIME.
--- NOTE | 2019-08-22 08:07 | NUR ---
REPORT RECEIVED FROM ROADWAY DESIGNER RNs. PATIENT RESTING IN BED, SITTING WITH HOB ELEVATED AND TALKING ON HER CELL PHONE. PT REMAINS ON VAPOTHERM WITH SP02 CURRENTLY OF 91%. WILL BE GOING INTO PATIENT'S ROOM SOON. ASKED PATIENT FROM DOOR IF SHE NEEDS ANYTHING AT THIS MOMENT AND SHE DENIES. PATIENT NOT QUITE READY TO ORDER BREAKFAST EITHER AT THIS TIME.
--- NOTE | 2019-08-22 08:18 | NUR ---
IN PATIENT'S ROOM AT THIS TIME. PT'S OXYGEN DROPPED LOW 79% AFTER TALKING ON THE PHONE. NOW BACK UP TO 89% AFTER RESTING AND SITTING UP FULLY IN BED. PT STATES SHE HAS MILD SHORTNESS OF BREATH, DENIES ANY CHEST PAIN. ASSESSMENT TO BE COMPLETED.
--- NOTE | 2019-08-22 09:00 | NUR ---
PATIENT SITTING UP AND EATING BREAKFAST AT THIS TIME. PULSE OX MOVED TO LEFT HAND FINGERS AND SP02 IS CURRENTLY 91% ON THE 85% AND 30 L OF FLOW VAPOTHERM. PT DENIES ANY WORSENING SHORTNESS OF BREATH. PT AGREEABLE TO DO PRONING AFTER BREAKFAST. WILL RETURN TO ROOM SHORTLY AFTER PATIENT IS DONE WITH BREAKFAST. PT AGREES TO USE CALL LIGHT AND NOT TO GET UP BY HERSELF. CALL LIGHT WITHIN REACH.
--- NOTE | 2019-08-22 09:17 | NUR ---
PATIENT DESATURING WITH COUGHING WHILE EATING BREAKFAST. PT ASKED TO STOP EATING FOR A WHILE AND REST TO ALLOW OXYGEN LEVELS TO RISE. PT NOW LAYING ON LEFT SIDE WITH BED MOSTLY FLAT. SP02 IS NOW 95%. OXYGEN DROPPED LOW 79% WHILE COUGHING. RR CURRENTLY 25. CONTINUE TO MONITOR CLOSELY.
--- NOTE | 2019-08-22 10:09 | NUR ---
PATIENT HELPED INTO PRONE POSITION IN BED AT 0945. PT AGREEABLE TO TRY AND REST IN THIS POSITION LONG POSSIBLE, AND WILL CALL WHEN SHE WOULD LIKE TO GET OUT OF IT. SP02 NOW 95% ON 85% VAPOTHERM AND 30 L OF FLOW. HR IN THE 60s. CONTINUE TO MONITOR.
--- NOTE | 2019-08-22 11:06 | NUR ---
PATIENT REMAINS RESTING IN PRONED POSITION AT THIS TIME. SP02 IS 97-98%, RR IN THE MID TO UPPER 20s TO LOW 30s. HR IN THE 60-70s SINUS MOSTLY WITH PACs AND PVCs NOTED AT TIMES. CONTINUE TO MONITOR.
--- NOTE | 2019-08-22 11:43 | NUR ---
PATIENT STILL RESTING AT THIS TIME IN PRONE POSITION. PT DENIES WANTING TO ORDER LUNCH YET BUT WANTS TO STAY LAYING IN BED AT THIS TIME. PT DENIES NEEDING ANYTHING AT THIS TIME. PATIENT INSTRUCTED TO CALL WHEN SHE NEEDS ANYTHING.
--- NOTE | 2019-08-22 12:56 | NUR ---
IN PATIENT'S ROOM FOR NOON ASSESSMENT. PT HELPED UP OUT OF PRONE POSITION AND INTO CHAIR. PT DENIES ANY SHORTNES OF BREATH. SP02 AFTER THIS ACTIVITY STAYS AROUND 86-88% AND TAKES A LITTLE WHILE TO COME BACK TO 90%. PT NOW TRYING TO EAT LUNCH IN CHAIR. LINEN CHANGED. VAPOTHERM SETTINGS REMAIN 85% AND 30 L OF FLOW. UNABLE TO LISTEN TO LUNG SOUNDS DUE TO PAPR AT THIS TIME. PT ALSO BLOWS HER NOSE WITH DARK REDISH LOOKING SNOT SHOWN ON KLEENEX. CONTINUE TO MONITOR.
--- NOTE | 2019-08-22 14:56 | NUR ---
IN PATIENT'S ROOM TO BRING HER PERSONAL BELONGINGS THAT HER BROUGHT HER, WHICH INCLUDED TWO PAIR OF HER GLASSES AND TWO PHONE CORDS. PATIEN THEN HELPED TO TURN TOWARDS WINDOW IN THE SUNLIGHT. PATIENT HAS CONTINUED TO SIT UP IN CHAIR AND TOLERATING THIS WELL. PT ALSO BRUSHES HER TEETH. VAPOTHERM SETTINGS REMAIN THE SAME. LUNGS AUSCULTATED AND COARSE CRACKLES HEARD IN BOTH BASES. PT CAN HARDLY TAKE A DEEP BREATH WITHOUT COUGHING WELL. IS AND ACAPELLA BROUGHT INTO ROOM FOR PATIENT AND INSTRUCTED ON USE. PT AGREEABLE TO CONTINUE USING INDEPENDTLY. PATIENT ALSO REQUESTING A DIET PEPSI. WILL CONTINUE TO MONITOR.
--- NOTE | 2019-08-22 15:27 | NUR ---
PATIENT REMAINS SITTING IN CHAIR AND READING. PT IS FACING THE WINDOW AND HAS THE SUNLIGHT BEAMING IN ON HER. SP02 CURRENTLY 93%, RR 26. CONTINUE TO MONITOR.
--- NOTE | 2019-08-22 16:00 | NUR ---
Update from Pts nurse. Pt cont. on 30L Vapotherm. Pt. is self proning, not feeling well this afternoon.
--- NOTE | 2019-08-22 16:32 | NUR ---
IN PATIENT'S ROOM FOR ASSESSMENT AND VITALS. PT HAS ENJOYED SITTING UP IN CHAIR AND WISHES TO STAY UP UNTIL AFTER DINNER. BATH GIVEN WHILE IN CHAIR. NEW ATTENDS TO BE PLACED ONCE PATIENT BACK IN BED AFTER DINNER. PT HAS BEEN USING IS AND ACAPELLA IN ROOM ON HER OWN AND ENCOURAGED TO KEEP THIS UP. OXYGEN CURRENLTY 92% ON 85% VAPOTHERM.
--- NOTE | 2019-08-22 17:58 | NUR ---
DR. MADRIGAL IN TO SEE PATIENT AT 1745. PATIENT NOW EATING HER DINNER IN CHAIR. AGREEABLE TO GO BACK TO BED AFTER DINNER. CONTINUE TO MONITOR. SP02 86-90% WHILE EATING AT THIS TIME.
--- NOTE | 2019-08-22 18:31 | NUR ---
PATIENT HELPED BACK TO BED FROM CHAIR. ATTENDS CHANGED AND GALINDO CARE PROVIDED. PT DESAT DOWN TO 77% WITH THIS ACTIVITY, BUT VISIBLY NOT SHORT OR BREATH AND DENIES SHORTNESS OF BREATH. PT NOW PRONING AND TOLERATING WELL. SP02 UP TO 96% IN THIS POSITION. GALINDO EMPTIED. PT SALINE LOCKED AFTER ABX FINISHES. CALL LIGHT WITHIN REACH. CELL PHONE AND IPAD PLUGGED IN PER PATIENT'S REQUEST.
--- NOTE | 2019-08-22 20:25 | NUR ---
SHIFT REPORT RECEIVED FROM TIMO WALKER. ASSESSMENT COMPLETED AT THIS TIME. PT IS ALERT AND INTERACTIVE, DENIES PAIN. UNABLE TO AUSCULTATE DUE TO PAPR PPE. PT DENIES SOB, CHEST PAIN, AND NAUSEA. VAPOTHERM REMAINS IN PLACE AT 30L @ 85%. HR SINUS WITH PVC'S PER MONITOR. GALINDO PATENT AND DRAINING FREELY. IV SITES INTACT, PATENT, SALINE LOCKED. SKIN GROSSLY INTACT. DISCUSSED REPOSITIONING, BREATHING EXERCISES, AND PLAN OF CARE FOR THE NIGHT WITH PT. BLINDS CLOSED PER PT REQUEST, DENIES FURTHER NEEDS AT THIS TIME. CALL LIGHT AND BELONGINGS WITHIN REACH.
--- NOTE | 2019-08-22 21:15 | NUR ---
IN TO CHECK ON PT, SATS AT 80%. PT SITTING UP AND COUGHING, PT STATES SHE WAS TRYING TO TURN TO PRONE FROM SUPINE BUT WAS "TANGLED UP" IN CORDS. IN TO ASSIST PT, MEANWHILE TEMPORARILY INCREASED VAPOTHERM TO 40L @95% FOR ABOUT 5 MINUTES. PRN ROBITUSSIN GIVEN AND MERREM INFUSION STARTED. PT NOW PRONED, BED IN REVERSE [place]. VAPOTHERM SETTINGS RETURNED TO 30L @ 85% AND PT'S SATS 92%. NO FURTHER REQUESTS AT THIS TIME, CALL LIGHT WITHIN REACH.
--- NOTE | 2019-08-23 00:44 | NUR ---
ASSESSMENT COMPLETED, UNCHANGED FROM PREVIOUS. PT REMAINS ON VAPOTHERM AT 30L @ 85%. HR SINUS WITH PVC'S PER MONITOR. MERREM INFUSION COMPLETED, IV SITES PATENT, INTACT, AND SALINE LOCKED. GALINDO PATENT, DRAINING FREELY. PT CURRENTLY PRONED, TIPPED TO RIGHT SIDE. VITAL SIGNS STABLE. NO REQUESTS AT THIS TIME, CALL LIGHT WITHIN REACH.
--- NOTE | 2019-08-23 02:57 | NUR ---
PT CONTINUES TO SLEEP, NO APPARENT DISTRESS. RESPIRATIONS EVEN AND UNLABORED, VAPOTHERM REMAINS IN PLACE, NO CHANGES TO SETTINGS. RR:28, HR:64, SPO2:95%. WILL ALLOW FOR REST AND CONTINUE TO MONITOR.
--- NOTE | 2019-08-23 06:00 | NUR ---
ASSESSMENT COMPLETED, UNCHANGED FROM PREVIOUS. VITAL SIGNS TAKEN, STABLE. PT REMAINS ON VAPOTHERM, SETTINGS UNCHANGED. PT CURRENTLY POSITIONED ON LEFT SIDE. LABS DRAWN AND SENT TO LAB. MERREM INFUSION STARTED. GALINDO EMPTIED, REMAINS PATENT. FRESH ICE WATER PROVIDED. PT DENIES FURTHER REQUESTS AT THIS TIME, CALL LIGHT WITHIN REACH.
--- NOTE | 2019-08-23 07:58 | NUR ---
PATIENT AWAKENS, TURNS OVER FROM HER SIDE TO HER BACK AND STARTS TO DESATURATE. PT ABLE TO TALK, DENIES SHORTNESS OF BREATH, BUT SP02 STAYING LOW, IN THE 70-80s. IN PATIENT'S ROOM TO ASSESS HER. LUNG SOUNDS REVEAL CRACKLES TO MID TO ALMOST UPPER LOBES. PT SAT UP IN HIGH FOWLERS POSITION IN BED. FIO2 INCREASED TO 90%, AND THEN INCREASED AGAIN TO 95% AND 35 L OF FLOW. SPO2 NOW ONLY 86%. HR IN THE 70s. BP 92/54 (62). BREAKFAST ORDERED FOR PATIENT.
--- NOTE | 2019-08-23 08:39 | NUR ---
PATIENT NOW 91-93% ON 95% AND 35 L FLOW.
--- NOTE | 2019-08-23 08:50 | NUR ---
Update from RN. Pt's status in unchanged from yesterday.
--- NOTE | 2019-08-23 10:06 | NUR ---
IN PATIENT'S ROOM TO GIVEN IV LASIX. 40 MG IV GIVEN, BP BEFORE GIVING WAS 101/53. GALINDO EMPTIED FOR 225 MARCELLUS COLORED URINE. PT THEN HELPED BRUSH HER TEETH AND FLOSS. PATIENT INTO PRONE POSITION. FI02 TURNED DOWN TO 90% AND SP02 NOW UP TO 95% WHILE PRONED. PT'S CALL LIGHT WITHIN REACH. PT AGAIN DENIES ANY FEELING MORE SHORT OF BREATH. WILL CONTINUE TO MONITOR CLOSELY.
--- NOTE | 2019-08-23 10:45 | NUR ---
PATIENT REMAINS PRONED AT THIS TIME. VAPOTHERM SETTINGS ARE 80% AND 30 L. SP02 IS CURRENTLY 97% WITH A RR OF 27. HR IN THE 60s.
--- NOTE | 2019-08-23 13:07 | NUR ---
IN PATIENT'S ROOM FOR ASSESSMNT AND VITALS. PT UP OUT OF PRONE POSITION. PT GALINDO EMPTIED 2160 ML DILUTE URINE. PATIENT SITS ON SIDE OF BED. SP02 MAINTAINS AND DOES NOT DROP DOWN THIS TIME WITH ACTIVITY IT DID THIS AM. VAPOTHERM SETTINGS ARE 30 L AND 80% FI02. LENGHTY DISCUSSION WITH PATIENT REGARDING TRIAL OF CPAP FOR LUNG RECRUITMENT. PATIENT AGREEABLE TO WEAR CPAP. RT NOW IN ROOM TO SET THIS UP. PT EATING SHERBERT NOW. BP 88/56. NORMAL BLOOD PRESSURES RUN A LITTLE ON THE LOWER SIDE. WILL CONTINUE TO MONITOR.
--- NOTE | 2019-08-23 15:54 | NUR ---
PATIENT OFF CPAP AT THIS TIME. PT WAS ABLE TO WEAR CPAP FROM [phone]. SETTINGS WERE 10 CPAP AND 70% FI02. PT NOW ON VAPOTHERM WITH SETTINGS OF 75% AND 25 L OF FLOW. PT C/O RINGING IN HER EARS FROM CPAP. TEMP 97.6 AT THIS TIME. CONTINUE TO MONITOR.
--- NOTE | 2019-08-23 16:46 | NUR ---
PATIENT SITTING UP IN CHAIR, TALKING ON PHONE. SP02 DROPPING SOME, BUT PATIENT DOES NOT APPEAR IN DISTRESS. WILL CONTINUE TO MONITOR.
--- NOTE | 2019-08-23 18:49 | NUR ---
PATIENT HELPED BACK TO BED AND NOW IN PRONE POSITION. PT ATE ABOUT 40% OF HER DINNER BUT DID NOT LIKE HER SALAD. SP02 IS 96% AT THIS TIME ON 75% AND 25 L VAPOTHERM. PT RESTING. IV MERREM ALMOST FINISHED. CONTINUE TO MONITOR.
--- NOTE | 2019-08-23 20:30 | NUR ---
SHIFT REPORT RECEIVED FROM TIMO WALKER. DR. MADRIGAL CALLED AND ORDER RECEIVED FOR 20MEQ ORAL POTASSIUM REPLACEMENT. ASSESSMENT COMPLETED. PT IS ALERT/ORIENTED, DENIES PAIN. ASSESSMENT LIMITED DUE TO PAPR PPE, BUT PT DENIES CHEST PAIN, SOB, AND NAUSEA. VAPOTHERM IN PLACE AT 25L, INCREASED FIO2 FROM 75% TO 80% FOR SATS 86-88%. HR SINUS PER MONITOR. SKIN GROSSLY INTACT. IV SITES INTACT AND PATENT. GALINDO PATENT, DRAINING FREELY, CATH CARE PROVIDED. PT CURRENTLY POSITIONED ON LEFT SIDE. DISCUSSED PLAN OF CARE FOR THE NIGHT, PT DENIES CONCERNS OR QUESTIONS. CALL LIGHT WITHIN REACH.
--- NOTE | 2019-08-23 22:08 | NUR ---
PT HEARD COUGHING, SATURATIONS DECREASED TO 75%. IN TO ASSESS PT, TEMPORARILY INCREASED VAPOTHERM SETTINGS TO 40L @95%. PRN ROBITUSSIN GIVEN. PT STATES THAT THE NASAL CANNULA HAD COME OFF. DENIES SOB, NO APPARENT DISTRESS. POSITIONED HERSELF PRONE, SLIGHTLY TIPPED TO LEFT SIDE, BED PLACED IN REVERSE [place]. AFTER ABOUT 5 MINUTES I WAS ABLE TO TITRATE VAPOTHERM SETTINGS BACK DOWN, NOW AT 25L @ 75%. SATS 95%.
--- NOTE | 2019-08-24 00:32 | NUR ---
ASSESSMENT COMPLETED, UNCHANGED FROM PREVIOUS. PT CONTINUES TO DENY CHEST PAIN, SOB, AND NAUSEA. VAPOTHERM REMAINS IN PLACE AT 25L @ 75%. PT PRONED, BED IN REVERSE [place]. GALINDO PATENT, DRAINING FREELY. MERREM CONTINUES TO INFUSE WNL. VITAL SIGNS STABLE. NO REQUESTS AT THIS TIME, CALL LIGHT WITHIN REACH.
--- NOTE | 2019-08-24 02:50 | NUR ---
PT DESATURATED TO 77%, IN TO CHECK ON HER AND FOUND THAT WHILE PT WAS REPOSITIONING IN BED, NASAL CANNULA HAS BECOME DISPLACED. REPOSITIONED CANNULA AND TEMPORARILY INCREASED VAPOTHERM SETTINGS TO 40L @95% FOR ABOUT 5 MINUTES. SATS INCREASED TO 98% ON THOSE SETTINGS AND I WAS ABLE TO RETURN VAPOTHERM BACK TO ORIGINAL SETTINGS AT 25L @ 75%. PT REMAINS IN PRONE POSITION, TIPPED TO RIGHT, BED IN [place]. PT NEVER APPEARED TO BE IN ANY DISTRESS DURING THIS TIME, DENIES SOB. NO FUTHER REQUESTS, CALL LIGHT WITHIN REACH.
--- NOTE | 2019-08-24 04:11 | NUR ---
PT APPEARS TO BE ASLEEP AT THIS TIME, NO APPARENT DISTRESS. RESPIRATIONS EVEN AND UNLABORED, VAPOTHERM REMAINS IN PLACE AT 25L @ 75%. HR: 56, RR:28, SPO2: 98%. WILL DEFER ASSESSMENT FOR NOW AND ALLOW FOR REST.
--- NOTE | 2019-08-24 05:30 | NUR ---
IN TO DRAW MORNING LABS, PT TOLERATED WELL. ASSESSMENT COMPLETED, REMAINS UNCHANGED. STANDING WEIGHT OBTAINED, INCREASED VAPOTHERM SETTINGS PRIOR TO ACTIVITY TO 40L @ 95%, PT SPO2 STILL DROPPED TO 80%. ONCE BACK IN BED AND RESTING, ABLE TO TITRATE SETTINGS BACK TO 25L @ 75%, PT POSITIONED HERSELF PRONE; SPO2 NOW >90%. MERREM INFUSION STARTED. GALINDO EMPTIED. FRESH ICE WATER PROVIDED. VITAL SIGNS STABLE. PT DENIES FURTHER REQUESTS, CALL LIGHT REMAINS WITHIN REACH.
--- NOTE | 2019-08-24 07:30 | NUR ---
PATIENT SHIFT REPORT RECIEVED FROM RUG UNDERLAY MACHINE OPERATOR RN. PATIENT PRONING IN BED AT THIS TIME AND IS TOLERATING WELL. CALL LIGHT IN REACH. PATIENT ABLE TO ROLL OVER IN BED ON HER OWN WITH NO ISSUES. WILL CONTINUE TO CLOSELY MONITOR.
--- NOTE | 2019-08-24 07:34 | NUR ---
Update from Dr. Medina. Vapotherm is decreased to 75%.
--- NOTE | 2019-08-24 09:00 | NUR ---
PATIENT SHIFT ASSESSMENT COMPLETED. PATIENT RESTING IN BED IN THE PRONE POSITION. PATIENT TOLERATES THIS POSITION REAL WELL. PATIENTS COLOR IS GOOD. PULSES STRONG. NO EDEMA NOTED IN LEGS. THIS RN WEARING A PAPR AND UNABLE TO TO LISTEN TO BREATH SOUNDS, BOWEL SOUNDS, AND HEART TONES. GALINDO CATHETER IN PLACE WITH URINE PRESENT. BREAKFAST ORDERED. PATIENT REPORTS NO BM FOR SEVERAL DAYS. WILL CONTINUE TO CLOSELY MONITOR.
--- NOTE | 2019-08-24 11:00 | NUR ---
PATIENT FINSIHED BREAKFAST. PATIENT ONLY ATE ABOUT 50%. MIRALAX AND STOOL SOFTENER PROVIDED. PATIENT DENEIS ANY OTHER NEEDS AT THIS TIME. PATIENT IS GOING TO SIT UP FOR AWHILE. NO OTHER NEEDS AT THIS TIME. CALL LIGHT IN REACH.
--- NOTE | 2019-08-24 11:30 | NUR ---
PATIENT UP TO THE CAMMODE. TURNED VAPOTHERM UP TO 35L AND 100% AND PATIENT DESATED TO 88%. PATIENT TOLERATED WELL. WILL CONTINUE TO CLOSELY MONITOR.
--- NOTE | 2019-08-24 13:00 | NUR ---
PATIENR HAS A POOR APPETITE. ORDERED A MILKSHAKE FOR PATIENT AND SHE IS SIPPING ON IT AT THIS TIME. PATIENT HAS BEEN PRONNING FOR LAST SEVERAL HOURS AND TOLERATING WELL. NO OTHER NEEDS AT THIS TIME. WILL CONTINUE TO CLOSELY MONITOR.
--- NOTE | 2019-08-24 15:30 | NUR ---
PATIENT REMAINS UP IN THE CHAIR WITH CPAP IN PLACE AND TOELRATING WELL. WILL CONTINUE TO CLOSELY MONITOR.
--- NOTE | 2019-08-24 17:00 | NUR ---
IN ROOM TO TAKE PATIENT OFF CPAP. ASSISTED PATIENT TO CAMMODE AND THEN TO BED AFTER CHANGING ALL THE SHEETS. BED BATH GIVEN. FRESH GOWN. DINNER ORDERED. PATIENT DENIES ANY OTHER NEEDS AT THIS TIME. WILL CONTINUE TO CLOSELY MONITOR.
--- NOTE | 2019-08-24 18:55 | NUR ---
THIS RN IN TO SEE PATIENT AND BRING HER HER FOOD. PATIENT DENIES ANY OTHER NEEDS AT THIS TIME. PATIENT REMAINS ON VAPOTHERM 25L AND 85%. PROVIDED WITH WARM BLANKET. WILL CONTINUE TO CLOSELY MONITOR.
--- NOTE | 2019-08-24 19:30 | NUR ---
RECEIVED REPORT FROM JUANA. pt RESTING ON LEFT SIDE IN ROOM. CALL LIGHT WITHIN REACH.
--- NOTE | 2019-08-24 19:45 | NUR ---
NO CONSENT FOUND FOR REMDESIVIR. CALLED DR REDDY. COYLE FOR THIS RN TO DISCUSS WITH pt.
--- NOTE | 2019-08-24 20:06 | NUR ---
DISCUSSED REMDESIVER TREATEMENT IN DEPTH WITH pt. pt HAD MORE QUESTIONS ABOUT THE TREATMENT AND WOULD LIKE TO SPEAK WITH DR GOMEZ PRIOR TO MAKING A DECISION. DR GOMEZ ON PHONE WITH pt. pt CONSENTED TO TREATEMENT, CONSENT SIGNED AND WITNESSED. MEDICATION INFUSION STARTED (SEE APR). ASSESSMENT DONE. DENIES PAIN AND SOB. ON VAPOTHERM 25LPM 85 Fi02. O2 SAT 94%. GALINDO CARE DONE. ROOM TIDIED. ASSISTED pt WITH PILLOWS AND LIGHTS. IV INFUSION COMPLETED. IV SL. NO FURTHER REQUESTS AT THIS TIME. CALL LIGHT WITHIN REACH.
--- NOTE | 2019-08-24 21:11 | NUR ---
pt DESATTED WHILE TURNING OVER TO PRONE. SATS INCREASED WITH REST. AT 96% AT THIS TIME.
--- NOTE | 2019-08-24 22:43 | NUR ---
ROUNDED ON pt. RESTING ON LEFT SIDE. O2 SAT 96% ON VAPOTHERM. RESPIRATION RATE 24. CALL LIGHT WITHIN REACH.
--- NOTE | 2019-08-25 00:30 | NUR ---
ASSESSMENT DONE. pt DENIED PAIN AND SOB AT THIS TIME. NO REQUESTS. I&O RECORDED. CALL LIGHT WITHIN REACH.
--- NOTE | 2019-08-25 02:16 | NUR ---
ROUNDED ON pt. RESTING ON LEFT SIDE O2 SAT 97%. RESPIRATIONS 19.
--- NOTE | 2019-08-25 03:29 | NUR ---
pt DESATTED, FOUND WITH VAPOTHERM NOT IN PLACE. WOKE pt, ABLE TO REPLACE BY SELF. SAT INCREASED SLOWLY TO 97% ON VAPO THERM.
--- NOTE | 2019-08-25 05:06 | NUR ---
pt's SATS DROPPING, IN TO ASSIST. pt REPORTED "I JUST CAN'T MAKE THIS THING STAY IN MY NOSE." ASSISTED TO REPLACE CANNULA FOR VAPOTHERM AND HELPED pt PRONE. SATS INCREASED TO 99% ON 25L 85 FiO2. ASSESSMENT DONE. pt DENIES PAIN AND SOB. LABS DRAWN. GALINDO EMPTIED. PROVIDED ICE. NO REQUESTS AT THIS TIME. CALL LIGHT WITHIN REACH.
--- NOTE | 2019-08-25 06:52 | NUR ---
ROUNDED ON pt. RESTING ON RIGHT SIDE. O2 SAT 98%. CALL LIGHT WITHIN REACH. VAPOTHERM IN PLACE.
--- NOTE | 2019-08-25 09:12 | NUR ---
ASSESSED PT LUNG SOUNDS WITH DIGITAL STETHESCOPE. PT SAT UP IN BED UNASSISTED TURNED UP VAPOTHERM TO 35\100% WHEN UP TO BSC. PT TOLERATED WELL. GALINDO IN PLACE DRAINING YELLOW URINE. GIVEN WARM WASH CLOTH TO CLEAN UP. ORDERED BREAKFAST. PT DENIES PAIN. COUGH NOTED WITH ANY MOVEMENT OR EXERCTION.
--- NOTE | 2019-08-25 09:32 | NUR ---
PT ASSISTED TO SITTING UP IN CHAIR AT BEDSIDE. WAS UNABLE TO HAVE A BM, GIVEN SENNA PER REQUEST. TOLERATED MOVEMENT WELL. CALL LIGHT IN REACH.
--- NOTE | 2019-08-25 09:44 | NUR ---
XRAY IN ROOM FOR CHEST XRAY
--- NOTE | 2019-08-25 10:30 | NUR ---
PT RESTING IN CHAIR. DR GOMEZ IN ROOM TO ASSESS. BREAKFAST TRAY IN ROOM.
--- NOTE | 2019-08-25 11:51 | NUR ---
PT APPEARS TO BE RESTING COMFORTABLY IN CHAIR. RR 24 WITH SATS 98%.
--- NOTE | 2019-08-25 12:49 | NUR ---
PT BACK IN BED PRONING. RR 28, SATS 98%
--- NOTE | 2019-08-25 12:52 | NUR ---
To CCU to speak with pt for future plan. Pt is sleeping prone. Rn will call next time she enters room so I can speak with pt by phone. Staff do not anticipate discharge soon.
--- NOTE | 2019-08-25 13:18 | NUR ---
PT HAS TURNED TO LEFT LATERAL SIDE LAYING BY HERSELF. VS REMAIN STABLE.
--- NOTE | 2019-08-25 13:59 | NUR ---
PT REMAINS ON LEFT SIDE SLEEPING. EMPTIED GALINDO FOR 200ML.
--- NOTE | 2019-08-25 16:47 | NUR ---
PT FINISHED TALKING ON PHONE WITH FAMILY. GIVEN FRESH ICE WATER. TABLE MOVED CLOSER. EMPTIED GALINDO FOR 400ML. STATES THE ONLY THING THAT SOUNDS GOOD IS PIZZA. ADVISED THAT FAMILY COULD DROP SOME AT THE FRONT AND WE WOULD BRING IT BACK TO HER. TURNED VAPO THERM DOWN TO 20L 70 FIO2 WITH SATURATION REMAINING AT 93-95%. PT RECIEVED ANOTHER PHONE CALL.
--- NOTE | 2019-08-25 18:21 | NUR ---
PT ASSISTED TO CHAIR FOR DINNER. ACTUALLY ORDERED QUITE A BIT MORE AND APPEARS TO HAVE A BETTER APPETTITE. TOLERATED WELL AND DID NOT PRE OXYGENATE. SATS REMAIN 96%. GALINDO DRAINING LIGHT YELLOW URINE NOW.
--- NOTE | 2019-08-25 19:30 | NUR ---
RECEIVED REPORT FROM TIMO POE. pt RESTING IN CHAIR. REFUSED [place] TONIGHT (SEE MAR). IV INFUSION COMPLETED. IN TO SL. ASSESSMENT DONE. pt WISHES TO REMAIN IN THE CHAIR A BIT LONGER. CALL LIGHT WITHIN REACH.
--- NOTE | 2019-08-25 20:20 | NUR ---
BP READING LOW, MANUALLY CHECKED BOTH ARMS BP ON LEFT ARM 84/50 SIMILAR ON RIGHT ARM. pt DENIED BEING LIGHTHEADED OR DIZZY, STATED "I FEEL A LITTLE SWEATY BUT THAT IS ALL." NOTIFED. RECHECK BP IN 1 HOUR. NO OTHER ORDERS AT THIS TIME. pt RESTING IN CHAIR. CALL LIGHT WITHIN REACH. NO REQUESTS AT THIS TIME.
--- NOTE | 2019-08-25 20:52 | NUR ---
pt RESTING IN CHAIR WITH EYES CLOSED, RESPIRATIONS REGULAR. O2 SAT 95%. HR 73. RESPIRATION RATE 24.
--- NOTE | 2019-08-25 21:31 | NUR ---
MANUALLY VERIFIED BP 92/58. ASSISTED pt TO AMBULATE FROM CHAIR TO BED. pt IN PRONE POSITION. GALINDO CARE DONE. EMPTIED GALINDO. TITRATED FiO2 DOWN TO 68%. pt SATS 94%, 20L. AUSCULTATED LUNGS, DIM IN BASES, OTHERWISE CLEAR. BOWEL TONES PRESENT. POSSESSIONS AND CALL LIGHT WITHIN REACH.
--- NOTE | 2019-08-25 22:10 | NUR ---
IN ROOM FOR BLOOD PRESSURE. pt RESTING ON LEFT SIDE. EYES CLOSED, RESPIRATIONS REGULAR. CALL LIGHT WITHIN REACH.
--- NOTE | 2019-08-26 | NUR ---
IN TO DO ASSESSMENT. pt RESTING ON STOMACH WITH VAPOTHERM IN PLACE. WOKE TO VOICE. ASSESSMENT DONE. VITALS AND I&O RECORDED. NO REQUESTS AT THIS TIME. CALL LIGHT WITHIN REACH.
--- NOTE | 2019-08-26 01:48 | NUR ---
ROUNDED ON pt. RESTING IN BED, EYES CLOSED, RESPIRATIONS REGULAR. CALL LIGHT WITHIN REACH.
--- NOTE | 2019-08-26 04:03 | NUR ---
ROUNDED ON pt. RESTING ON LEFT SIDE EYES CLOSED, VAPOTHERM IN PLACE. O2 SAT 98%, TITRATED Fi02 TO 60% 20L. pt SAT AT 97%. CALL LIGHT WITHIN REACH. GALINDO EMPTIED.
--- NOTE | 2019-08-26 06:00 | NUR ---
IN TO DO ASSESSMENT. pt LAYING ON RIGHT SIDE, AWAKE. REPORTED SHE SLEPT "OKAY" ASSESSMENT DONE. pt DENIED PAIN AND SOB. DISCUSSED O2 NEEDS THROUGHOUT THE SHIFT. NO REQUESTS AT THIS TIME. PROVIDED FRESH WATER. CALL LIGHT WITHIN REACH.
--- NOTE | 2019-08-26 07:30 | NUR ---
PATIENT SHIFT REPORT RECIEVED FROM SHELF DRIER OPERATOR RN. PATIENT ON VAPOTHERM AT 20L AND 55%. PATIENT SPO2 95%. CALL LIGHT I NREACH. WILL CONTINUE TO CLOSELY MONITOR.
--- NOTE | 2019-08-26 09:00 | NUR ---
IN TO DO MORNING ASSESSMENT. PATIENT IS SMILING AND STATES "I FEEL A LITTLE BETTER THIS AM". THIS RN IN PAPR SO CANT LISTEN TO BREATH SOUNDS, BOWEL TONES, AND HEART TONES. PATIENT HAS AN OCCASIONAL COUGH. NO EDEMA NOTED. GLAINDO CATHETER PRESENT WITH YELLOW URINE. PATIENT BREAKFAST ORDERED. PATIENT REQUESTED TO SIT IN BED FOR NOW. WILL CONTINUE TO CLOSELY MONITOR.
--- NOTE | 2019-08-26 11:00 | NUR ---
PATIENT UP TO THE CHAIR AFTER USING THE CAMMODE. PATIENT TOELRATED WELL. PATIENT IS CONTINUING TO SHOW IMPROVEMENTS IN HER OXYGENATION. WILL CONTINUE TO WEAN DOWN AND TRANSITION TO NASAL CANNULA LATER TODAY IF PATIENT CAN CONTINUE SHOWING IMPROVEMENTS. ALL BELONGINGS ON THE SDIE TABLE. WILL ORDER LUNCH LATER PER REQUEST. NO OTHER NEEDS AT THIS TIME. WILL CONTINUE TO CLOSELY MONITOR.
--- NOTE | 2019-08-26 13:00 | NUR ---
PATIENTLUNCH ORDERED. PATIENT RESTING IN THE CHAIR AND DENIES ANY NEEDS AT THIS TIME. WILL CONTINUE TO CLOSELY MONITOR.
--- NOTE | 2019-08-26 15:30 | NUR ---
[facility]PLET[facility]. NEW BEDDING PLACED. NEW ATTENDS. GALINDO CATHETER OUT. PATIENT NOW PRONING IN BED. EDUCATED TO CALL IF SHE NEEDS TO GET UP. NO OTHER NEEDS AT THIS TIME. WILL CONTINUE TO CLOSELY MONITOR.
--- NOTE | 2019-08-26 17:30 | NUR ---
PATIENT RESTING IN BED AT THIS TIME AND DENEIS ANY NEEDS. DINNER ORDERED. WILL CONTINUE TO CLOSELY MONITOR.
--- NOTE | 2019-08-26 19:00 | NUR ---
IN TO START NEW IV AND ASSIST PATIENT UP TO THE CAMMODE. NEW IV STARTED ANDOLD IVS REMOVED PER PROTOCOL. PATIENT TOELRATED WELL. PATIENT ALSO SWITCHED TO NASAL CANNULA AT 6L WITH HUMIDIFICATION AT 1800. PATIENT HAS TOELRATED WELL FOR THE LAST HOUR. TITRATED DOWN TO 5.5L WHILE PATIENT EATING. BEDSIDE CAMMODE AT THE BED SO PATIENT CAN STAND. ENCOURAGED PATIENT TO USE MICHAEL LLIGHT AND LET STAFF KNOW WHAEN SHE NEEDS TO GET UP. NO OTHER NEEDS AT THIS TIME. WILL CONTINUE TO CLSOELY MONITOR.
--- NOTE | 2019-08-26 19:33 | NUR ---
RECEIVED REPORT FROM [facility]. pt RESTING IN BED READING A BOOK. CALL LIGHT WITHIN REACH.
--- NOTE | 2019-08-26 20:20 | NUR ---
IN TO ASSESS pt. RESTING IN BED READING A BOOK. DENIED PAIN AND SOB. O2 AT 5.5L ON NC. SATS IN MID 90'S. ASSESSMENT DONE. NO REQUESTS AT THIS TIME. CALL LIGHT WITHIN REACH.
--- NOTE | 2019-08-26 21:40 | NUR ---
pt UP TO VOID INDEPENDENTLY. SATS LOW 80'S WITH 5.5L O2. INCREASED O2. pt REPOSITIONED IN BED TO PRONE POSITION. AFTER A MINUTE OF REST O2 WAS TITRATED BACK TO 5.5L VIA NC. O2 SAT 93%. NO REQUESTS AT THIS TIME. CALL LIGHT WITHIN REACH.
--- NOTE | 2019-08-26 23:15 | NUR ---
ROUNDED ON pt. RESTING IN PRONE POSITION. 5.5L O2 VIA NC. SAT 100% RESPIRATION RATE 20. CALL LIGHT WITHIN REACH.
--- NOTE | 2019-08-27 01:00 | NUR ---
IN TO ASSESS pt. pt WOKE TO VOICE. VITALS RECORDED. TITRATED O2 DOWN TO 5L ON NC. SATS 98%. ASSESSMENT DONE. NO REQUESTS AT THIS TIME. CALL LIGHT WITHIN REACH.
--- NOTE | 2019-08-27 05:25 | NUR ---
ASSESSMENT DONE. VITALS DONE. DISCUSSED PLAN OF CARE WITH pt. TALKED ABOUT NEXT STEPS TO IMPROVE. ALL QUESTIONS ANSWERED. pt REPORTED SHE SLEPT "BETTER" NO FURTHER REQUESTS AT THIS TIME. CALL LIGHT WITHIN REACH.
--- NOTE | 2019-08-27 09:50 | NUR ---
TITRATED O2 TO 1L NC. SATURAITONS STABLE AT 94%.
--- NOTE | 2019-08-27 10:38 | NUR ---
PT UP TO BEDSIDE. OXYGEN SATURATION DROPPEDT TO 84%, RECOVERED WITHIN 1 MINUTE ABOVE 90'S.
--- NOTE | 2019-08-27 11:00 | NUR ---
TITRATED BACK TO O2 NC D/T SATURATIONS AT 90% ON 1L NC. SATS NOW 93% ON 2L NC.
--- NOTE | 2019-08-27 12:38 | NUR ---
PATIENT UP IN CHAIR, LUNCH SET UP IN FRONT OF HER. CALL LIGHT IN REACH
--- NOTE | 2019-08-27 14:05 | NUR ---
REPORT GIVEN TO ULISES GREENWOOD.
--- NOTE | 2019-08-27 14:30 | NUR ---
73YR OLD WOMAN TRANSFERRED FROM CCU TO ROOM 116 PER RECLINER, PT IS ALERT, ORIENTED, IN GOOD SPIRITS, ASKED IF SHE CAN LAY DOWN FOR A NAP SHE IS FEELING TIRED, ORIENTED TO ROOM AND CALL LIGHT, DENIES FURTHER NEEDS, O2 2L/NC, NO RESP DISTRESS.
--- NOTE | 2019-08-27 18:13 | NUR ---
PT STATES SHE IS FEELING MUCH BETTER AFTER NAP, GRANDAUGHTER BROUGHT IN PIZZA FOR DINNER, DENIES ANY NEEDS OR CONCERNS, UP TO RECLINER FOR DINNER, USES CALL LIGHT APPROP.
--- NOTE | 2019-08-27 21:59 | NUR ---
ASSESSMENT COMPLETE WITH PAPR PPE. PT LAYING IN BED PRONE. PT IS SLEEPY BUT AROUSABLE AND RESPONSIVE. VSS. 93%SPO2 ON 2L PNC. PT C/O NO PAIN, SOB. PT HAS NO REQUESTS AT THIS TIME. CALL LIGHT WITHIN REACH.
--- NOTE | 2019-08-27 23:56 | NUR ---
ROUNDS COMPLETED. VIEWED PT THROUGH GLASS DOOR D/T ISOLATION STATUS. PT IS LAYING RIGHT LATERAL. EVEN UNLABORED BREATHING, NASAL CANNULA IN PLACE. NO APPARENT SIGNS OF DISTRESS.
--- NOTE | 2019-08-28 02:02 | NUR ---
PT IS LAYING ON HER BACK SLEEPING. EVEN UNLABORED BREATHING. NO APPARENT SIGNS OF DISTRESS.
--- NOTE | 2019-08-28 04:50 | NUR ---
ASSESSMENT COMPLETE. PT WAS SLEEPING THIS NURSE ENTERED THE ROOM. SP02 PER MONITOR WAS 88-89% ON 2L PER NC. BEFORE TITRATING, REPOSITIONING AND DIFFERENT FINGERS TRIED. TITRATED TO 3L PER NC WHICH INCREASED THE PT SPO2 TO 90+%. PT STATES AT 88-89% SHE DID NOT FEEL SOB. VS OTHERWISE STABLE. MD HAS NO FURTHER REQUESTS AT THIS TIME. CALL LIGHT WITHIN REACH.
--- NOTE | 2019-08-28 06:21 | NUR ---
PT SLEPT VERY WELL ALL NIGHT. SPO2 REMAINS AT 3L PNC TO KEEP PT AT 90%. DR GOMEZ INFORMED. PT IS INDEPENDENT IN ROOM AND IS CURRENTLY UP IN CHAIR WITH HER CELL PHONE.
--- NOTE | 2019-08-28 09:44 | NUR ---
Pt sitting up in chair, a&ox4. Pt denies sob and pain at this time. Vital signs are stable at this time. Pt reporting she wants to shower today; ensured I would be back in a while to assist her. Pt has no needs at this time. Call light within reach.
--- NOTE | 2019-08-28 12:34 | NUR ---
Pt showered and reports "feeling better". Pt's oxygen decreased to 1L per nc as her 02 sat level is 92% on room air. Pt reports she removed her oxygen briefly after her shower; denies sob on ra. Lunch ordered at this time. Pt denies pain. Encouraged pt to call staff if she has needs. Call light within reach.
--- NOTE | 2019-08-28 14:21 | NUR ---
BECAUSE OF RESTRICTIONS, CONNECTED WITH PT ON PHONE. PT FEELS MUCH BETTER, PT THINKS DC MAY BE WEDNESDAY.GAVE ENCOURAGEMENT AND HAD TIMO FOOTE TAKE IN Mame CM AND CATALINA
--- NOTE | 2019-08-28 16:13 | NUR ---
Pt resting in chair, a&ox4. Pt on 1L of oxygen per nc, respirations even and non labored. PT denies sob and pain. Pt has no needs. Personal supplies and call light within reach.
--- NOTE | 2019-08-28 17:30 | NUR ---
REMDESIVIR INFUSION STARTED PER ORDER, CONSENT CONFIRMED. IV FLUSHED, PATENT. PT DENIES OTHER NEEDS AT THIS TIME.
--- NOTE | 2019-08-28 19:42 | NUR ---
SHIFT REPORT RECEIVED FROM NURSE GARCIA. pt SITTING UP IN RECLINER CHAIR. NO APPARENT SIGNS OF DISTRESS.
--- NOTE | 2019-08-28 21:40 | NUR ---
ASSESSMENT COMPLETE. pt IS UP IN RECLINER CHAIR. VSS. SP02 92% ON 2L NC ALTHOUGH DOES FLUCUATE DEPENDING ON ACTIVITY OF pt. pt IS INDEPENDENT IN ROOM. pt REQUESTS A COOKIE AND MORE WATER WHICH IS PROVIDED. NO FURTHER REQUESTS AT THIS TIME.
--- NOTE | 2019-08-28 23:47 | NUR ---
ROUNDS COMPLETE. PT IN BED, APPEARS TO BE SLEEPING, LAYIING RIGHT LATERAL. NO APPARENT SIGNS OF DISTRESS.
--- NOTE | 2019-08-29 02:32 | NUR ---
PT LAYING LEFT LATERAL, APPEARS TO BE SLEEPING. NO APPARENT SIGNS OF DISTRESS.
--- NOTE | 2019-08-29 05:51 | NUR ---
PT SLEPT WELL ALL NIGHT. SPO2 IS STILL DEPENDENT ON O2. SPO2 IS 90-92% ON 2L NC. PT REMAINS INDEPENDENT IN THE ROOM AND IS ALERT AND ORIENTED. PT IS MOTIVATED TO GO HOME SOON.
--- NOTE | 2019-08-29 07:10 | NUR ---
REPORT RECEIVED FROM TIMO CARDOSO. PT UP TO CHAIR WORKING ON INCENTIVE SPIROMETER. PT DENIES PAIN AND NAUSEA, NO REQUESTS OR COMPLAINTS AT THIS TIME. CALL LIGHT WITHIN REACH.
--- NOTE | 2019-08-29 08:48 | NUR ---
MORNING ASSESSMENT AND MEDICATIONS DUE. PT UP TO CHAIR, EATING BREAKFAST. PT DENIES PAIN, NAUSEA, AND SHORTNESS OF BREATH. PT REMAINS ON 2L O2 BY NC. PULSE OXIMETER PROB CHANGE. O2 SATURATION AT 97%. PT WEANED TO ROOM AIR. O2 SATURATION MAINTAINING, WITH GOOD WAVEFORM, ABOVE 90%. PT CONTINUES TO DENY SHORTNESS OF BREATH. LUNG SOUNDS CLEAR. PT REACHES 1250ML ON INCENTIVE SPIROMETER. MEDICATIONS GIVEN. VITALS TAKEN, I/OS RECORDED. PT REMAINS UP TO CHAIR. CALL LIGHT WITHIN REACH. NO ADDITIONAL REQUESTS OR COMPLAINTS.
--- NOTE | 2019-08-29 10:20 | NUR ---
THIS RN TO ROOM TO CHECK ON PT. PT UP TO CHAIR. O2 SATURATION 93% ON ROOM AIR. RT CALLED FOR HOME OXYGEN TRIAL. PT REPORTS SHE FEELS READY TO GO HOME. PT REPORTS SHE HAD A SMALL BOWEL MOVEMENT. PT DENIES ADDITIONAL REQUESTS OR COMPLAINTS. CALL LIGHT WITHIN REACH.
--- NOTE | 2019-08-29 10:53 | NUR ---
RT TO BEDSIDE FOR HOME OXYGEN TRIAL.
--- NOTE | 2019-08-29 11:14 | NUR ---
RT FINISHED WITH HOME OXYEGEN EVALUATION. KARLA, RT, STATES THAT PT BECAME DIZZY WITH STANDING. PT NEEDED TO REST IN BED BEFORE PROCCEDING. KARLA STATES HE TOOK BLOOD PRESSURES AND NOTED A DROP. MD UPDATED AND STATES TO CONTINUE WITH DISCHRAGE PLAN BUT WALK PT IN ROOM PIROR TO DISCHRAGE AND NOTIFY MD IF ANY DIZZINESS OCCURS. PT UPDATED ON PLAN OF CARE.
--- NOTE | 2019-08-29 11:31 | NUR ---
MD TO ROOM TO CHECK ON PTS NEW COMPLAINTS. ORDERS FOR ORTHOSTAIC VITALS SIGNS. RESULTS GIVEN TO MD. ASSESSMENT DONE. HEART RATE REGULAR. LUNG SOUNDS CORSE IN RIGHT LOWER LOBE, INPROVES WITH COUGH. I.S. USED, PT REACHES 1250ML. PT PLACED BACK ON 2L O2 BY NC PER RESPIRATORY THERAPY. O2 AT 94% ON 2L AT THIS TIME. PT RESTING IN BED. WATER REFILLED. NO ADDITIONAL REQUESTS OR COMPLAINTS. CALL LIGHT WITHIN REACH.
--- NOTE | 2019-08-29 12:44 | NUR ---
UPDATED ON PTS ORTHOSTATIC VITAL SIGNS. ORDERS TO GIVE 1 LITER LR BOLUS AND THEN REPEAT ORTHOSTATICS ONE HOUR AFTER BOLUS COMPLETION. BOLUS STARTED (SEE MAR). PT RESTING IN CHAIR. APPLE JUICE PROVIDED PER PT REQUEST. NO ADDITIONAL REQUESTS OR COMPLAINTS. CALL LIGHT WITHIN REACH.
--- NOTE | 2019-08-29 13:10 | NUR ---
PATIENT SITTING UP IN CHAIR. VITAL SIGNS AND I&O DONE. CALL LIGHT WITHIN REACH. NO OTHER NEEDS AT THIS TIME
--- NOTE | 2019-08-29 13:41 | NUR ---
PT DRESSED, WAITING FOR DC INSTRUCTIONS. WILL TAKE PT HOME FOLLOWING DC. VISITED WITH PT ON PHONE STILL UNDER PRECAUTIONS. GAVE ENCURAGEMENT AND BLESSING
--- NOTE | 2019-08-29 13:50 | NUR ---
PUMP ALARMING, INFUSION COMPLETE. PT STATES SHE NO LONGER FEELS DIZZY AND WOULD LIKE HER BLOOD PRESSURES TAKEN NOW. SBA UP TO RESTROOM. PT VOIDS WITHOUT ISSUE. PT DENIES DIZZINESS WITH AMBULATION. STAND BY ASSIST BACK TO BED. ORTHOSTATIC VITALS SIGNS TAKEN. PT CONTINUES TO DENY DIZZINESS. PT UP TO CHAIR AND EATING LUNCH. NO ADDITIONAL REQUESTS OR COMPLAINTS. MD UPDATED ON PT STATUS. CALL LIGHT WITHIN REACH. IV SALINE LOCKED AT THIS TIME.
--- NOTE | 2019-08-29 14:14 | NUR ---
MD UPDATED ON PT STATUS AND ORTHOSTATIC VITAL SIGNS. MD STATES OK TO DISCHARGE PATIENT. AWAITING HOME OXYGEN TAKEN AND SET UP. PT UPDATED ON PLAN OF CARE AND VERBALIZES UNDERSTANDING.
--- NOTE | 2019-08-29 15:20 | NUR ---
PT READY FOR DISCHARGE. THIS RN TO ROOM. PT DENIES DIZZINESS. VITALS TAKEN. DISCHRAGE INSTRUCTIONS REVIEWED WITH PT. PT VERBALIZES UNDERSTANDING OF MEDICAITON, INSTRUCTIONS, HOME OXYGEN USE AND SAFETY, AND FOLLOW UP APPOINTMENTS. IV DC'D PER PROTOCOL. AMINA AND NOEL APPLIED. PHARMACIST CALLED TO REVIEWED MEDICAITONS WITH PT. PT STATES HER QUESTIONS HAVE BEEN ANSWERED. HOME OXYGEN TANK IN PLACE WITH PT ON 2L O2 BY NC. PT TRANSFERES SELF TO WHEELCHAIR. PT WHEELED FORM MED/SURG WITH MASK IN PLACE. NO ADDITIONAL REQUESTS OR CONCERNS.
== END 2019-08-29 15:22 | disposition home or self-care (01) | DRG 177 ==
LOC: ED 11:54 → CCU 15:42 → MS 08-27 14:15
PROVIDERS: ADMIT Internal Medicine
PROC: 5A09357 Assistance with Respiratory Ventilation, Less than 24 Consecutive Hours, Continuous Positive Airway Pressure (ICD-10-PCS; principal; 2019-08-19)
DX: U07.1 COVID-19 (principal); J96.01 Acute respiratory failure with hypoxia; J12.89 Other viral pneumonia; K21.9 Gastro-esophageal reflux disease without esophagitis; F39 Unspecified mood [affective] disorder; Z91.040 Latex allergy status; Z79.1 Long term (current) use of non-steroidal anti-inflammatories (NSAID); Z79.899 Other long term (current) drug therapy; Z85.72 Personal history of non-Hodgkin lymphomas; Z87.891 Personal history of nicotine dependence; Z85.3 Personal history of malignant neoplasm of breast
CPT/HCPCS: 36600; 51702; 71045; 80048; 80053; 81001; 82803; 83605; 83615; 83735; 84484; 85025; 85379; 87040; 93005; 93010; 94660; 94667; 94668; 94761; 94799; 96361; 96374; 99285-25; J1100; J1335; J1650; J1940; J2185; J2405; J3475; J7030; J7050; J7121

== ENCOUNTER 2021-12-08 11:56 | Day surgery (SDC) | payer MEDICARE, OTHER ==
[~2021-12-08] VITALS: Ht 167.6 cm; Wt 82.0 kg
[~2021-12-08 11:56] MED LIST changes: +B COMPLEX1 EACH PO; +CALCIUM + VITA1 EACH PO; +CYMBALTA20 MG PO; +DULOXETINE HCL60 MG PO; +VITAMIN D3250 MC1 PO
[2021-12-08] MEDS ORDERED: MAGNESIUM100 MG PO (12:28)
[2021-12-08] MEDS ORDERED: BIOTIN5 MG PO (12:28)
[2021-12-08] MEDS ORDERED: K-TAB ER20 MEQ PO (12:29)
--- NOTE | 2021-12-08 14:02 | NUR ---
12/08/21 1402 Shahnaz Anaya 1358- PT ARRIVES TO PACU AWAKE AND TALKING. PT REPORTS NO PAIN OR NAUSEA. PT FALLS TO SLEEP WHEN NOT BEING TALKED TO. RESP EVEN AND UNLABORED. OXYGEN SAT LOW TO MID 90'S ON 2L VIA CO2 NC.
--- NOTE | 2021-12-08 20:01 | OR ---
[facility] [address], [place] [address] Signed DATE OF OPERATION: 12/08/2021 SURGEON: Karla Morales MD PREOPERATIVE DIAGNOSES: 1. Family history of colon cancer (mother with rectosigmoid). 2. Probable irritable bowel syndrome. POSTOPERATIVE DIAGNOSIS: Pandiverticulosis. No evidence of colitis. PROCEDURE: Total colonoscopy with biopsies. ANESTHESIA: Intravenous sedation fentanyl 200 mcg and Versed 6 mg. INDICATION: 75-year-old white woman is a patient of Dr. Flood who has a family history of colon cancer in her mother (rectosigmoid cancer). 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 She later had resolution of her symptoms, was taken off that medication. She is seeing Dr. Hernandez, scalp treatment specialist in Loc[facility] and considered to have irritable bowel syndrome Dominantly. She was prescribed half scoop of MiraLAX and half scoop of Citrucel on a daily basis and to discontinue Questran which had been given to control diarrhea. Previous treatment of Lialda had been discontinued as well. She last had colonoscopy in 2018 showing no evidence of microscopic colitis or other colitis or polyps or cancer. The patient strongly wants to have colonoscopy undertaken; has been five years since her last colonoscopy given the family history of colon cancer in her mother, a five year interval for colon evaluation is reasonable. The risks of bleeding, infection, and perforation were reviewed with her. She understands and wished to proceed. FINDINGS: The prep was good. Extensive diverticular changes were noted throughout the sigmoid and remaining colon. She had no evidence of polyps or obvious colitis. Biopsies were obtained throughout. The right colon was intubated but full intubation of the cecum was not accomplished due to tortuosity of the colon and patient tolerance issues. Electronically Signed By: KARLA MORALES MD 12/08/212000 PATIENT NAME: MICHEL GREEN OPERATIVE REPORT DATE OF : 45 REPORT #: [id number] PHYSICIAN: KARLA MORALES MD PCP: DAVID FLOOD MD REPORT IS CONFIDENTIAL AND NOT TO BE RELEASED WITHOUT AUTHORIZATION [facility] [address] [place] [id number] Signed PROCEDURE IN DETAIL: The patient was brought to the endoscopy suite and placed in lateral decubitus position given intravenous sedation to the point of slurred speech and nystagmus. Full cardiopulmonary monitoring was maintained. Digital rectal examination was normal. An Olympus video colonoscope was passed in the rectum and manipulated noting numerous small large diverticula promptly. The scope was advanced beyond this to the transverse colon ultimately the right colon. Passage in the right upper quadrant was rather challenging and difficult requiring body position change, abdominal wall stabilization so forth. Ultimately, it appeared that the cecum was visualized. No strict passage to within the cecum was accomplished. Biopsies were randomly performed. The scope was withdrawn and the colonic mucosa was well examined and biopsies taken throughout. There was no clear evidence of colitis. the scope was further withdrawn. The remaining colon showed no sign of polyps or obvious colitis, cancer, or other abnormalities. The rectum appeared normal as well. The patient was taken to the recovery room in good condition having suffered no known complications. CONCLUDING DIAGNOSIS: No evidence of polyps or obvious colitis at this time. PLAN: We will review pathology reports as noted. We will review additionally her past surgical history as regards to abdominal surgery, which may better help understand her diarrhea and right upper quadrant pain. MD TORY Pfeiffer/CORONAL /[id number] cc: Kristy Velasquez Dr. Electronically Signed By: KARLA MORALES MD 12/08/212000 PATIENT NAME: MICHEL GREEN OPERATIVE REPORT DATE OF : 45 REPORT #: [id number] PHYSICIAN: KARLA MORALES MD PCP: DAVID FLOOD MD REPORT IS CONFIDENTIAL AND NOT TO BE RELEASED WITHOUT AUTHORIZATION [facility] [address] [facility] [place] [address] Signed Copies: ~ Electronically Signed By: KARLA MORALES MD 12/08/212000 PATIENT NAME: MICHEL GREEN OPERATIVE REPORT DATE OF : 45 REPORT #: [id number] PHYSICIAN: KARLA MORALES MD PCP: DAVID FLOOD MD REPORT IS CONFIDENTIAL AND NOT TO BE RELEASED WITHOUT AUTHORIZATION
== END 2021-12-08 14:44 | disposition home or self-care (01) ==
LOC: OPS 11:56 → DS 11:58 → OPS 13:00 → DS 12-15 12:00
PROVIDERS: ATTEND Surgery
PROC: 0DBE8ZX Excision of Large Intestine, Via Natural or Artificial Opening Endoscopic, Diagnostic (ICD-10-PCS; principal; 2021-12-08 13:00)
DX: R19.7 Diarrhea, unspecified (principal); K21.00 Gastro-esophageal reflux disease with esophagitis, without bleeding; K63.89 Other specified diseases of intestine; K57.30 Diverticulosis of large intestine without perforation or abscess without bleeding; Z80.0 Family history of malignant neoplasm of digestive organs; Z90.49 Acquired absence of other specified parts of digestive tract; Z86.16 Personal history of COVID-19; Z96.651 Presence of right artificial knee joint; Z91.040 Latex allergy status
CPT/HCPCS: 88305; 99153; G0500; J0690; J2250; J3010

== ENCOUNTER 2022-03-19 14:15 | Observation (INO) | payer MEDICARE, OTHER ==
[~2022-03-19] VITALS: Ht 167.6 cm; Wt 84.5 kg
[~2022-03-19 14:15] MED LIST changes: +BIOTIN5 MG PO; +MAGNESIUM100 MG PO; +POTASSIUM GLUCO99 MG PO
--- NOTE | 2022-03-19 17:08 | EKG ---
[facility] [address] [facility] [place] [address] Signed Normal sinus rhythm Minimal voltage criteria for LVH, may be normal variant ( R in aVL ) Nonspecific T wave abnormality Prolonged QT Abnormal ECG When compared with ECG of 19-AUG-2019 12:49, premature ventricular complexes are no longer present premature atrial complexes are no longer present Confirmed by Delia Fernando MD () on 03/19/2022 5:08:22 PM Electronically Signed By: DELIA FERNANDO MD 03/19/22 1708 PATIENT NAME: MICHEL GREEN Electrocardiogram DATE OF : 45 PHYSICIAN: DELIA FERNANDO MD REPORT #: [id number] REPORT IS CONFIDENTIAL AND NOT TO BE RELEASED WITHOUT AUTHORIZATION
--- NOTE | 2022-03-19 17:40 | NUR ---
pt to room 120 from er strecher - amb to br to void, neuro check done pt with left facial droop and pressure feeling in left jaw and ear. alert and oriented, speech wnl. oriented to room, reg diet presented to pt, vitals wnl. call light in reach.
--- NOTE | 2022-03-19 19:11 | NUR ---
PT CALL LIGHT ON. PT REQUESTS ASSISTANCE UP TO RESTROOM. STAND BY ASSIST UP TO RESTROOM. PT VOIDS 300ML CLEAR YELLOW URINE. PT PERFORMS SELF HAKEEM CARE. STAND BY ASSIST BACK TO BED. PT DENIES ADDITIONAL REQUESTS OR COMPLAINTS. CALL LIGHT WITHIN REACH. FAMILY AT BEDSIDE. BED RAILS UP.
--- NOTE | 2022-03-19 19:20 | NUR ---
REPORT RECEIVED FROM LUI Thompson RN. PT SITTING UP IN BED AND RESPONDS WHEN ADDRESSED. PT REQUESTING A NEW PILLOW, PILLOW PROVIDED. HOT PACK PROVIDED. PT REPORTS NO OTHER NEEDS AT THIS TIME. CALL LIGHT IN REACH. DAUGHTER IN ROOM.
--- NOTE | 2022-03-19 21:45 | NUR ---
DR FERNANDO ON THE PHONE AND UPDATED- OKAY WITH NIO ORDER FOR ARTIFICIAL TEARS D/T pt DIFFICULTY CLOSING LEFT EYE. PRIMARY RN YAMILA UPDATED AND AWARE.
--- NOTE | 2022-03-19 22:01 | NUR ---
IN TO ROUND ON PT. PT LAYING IN BED READING BOOK. PT REQUESTING TO USE RESTROOM. SBA FROM BED TO RESTROOM AND BACK TO BED. PT HAS STEADY GAIT. PT REPORTING HEADACH 05/25. ASSESSMENT COMPLETE. LUNG SOUNDS CLEAR. BOWEL TONES ACTIVE. PT A&O TO ALL. PT ABLE TO TELL THIS RN WHICH EXTREMITY IS TOUCHED WITH PTs EYES CLOSED. PT REQUESTING TYLENOL, PRN TYLENOL ADMINISTERED, SEE MAR. WATER PROVIDED. PT REPORTS NO OTHER NEEDS AT THIS TIME. CALL LIGHT IN REACH.
--- NOTE | 2022-03-20 01:20 | NUR ---
IN TO ROUND ON PT. PT RESTING IN BED ON RIGHT SIDE. PT AWAKENS WHEN ADDRESSED. WHEN ASKED IF PT HEADACHE IS STILL THERE PT STATES "IT IS GONE." VITALS AND I&Os COMPLETE. OFFERED PT TOILETING. PT HAS STEADY GAIT TO RESTROOM FROM BED AND BACK TO BED FROM RESTROOM. PT A&O TO ALL. PT DENIES ANY OTHER NEEDS AT THIS TIME. CALL LIGHT IN REACH.
--- NOTE | 2022-03-20 01:50 | NUR ---
HAND OFF REPORT GIVEN TO TIMO NUÑEZ.
--- NOTE | 2022-03-20 01:59 | NUR ---
Received report for assumption of care from TIMO Michel. Pt resting on her side call light in reach, breathing even and unlabored.
--- NOTE | 2022-03-20 03:13 | NUR ---
In pt room for rounding. Pt resting on right side, eyes closed, breathing even and unlabored, call light in reach. No indication of pain or discomfort.
--- NOTE | 2022-03-20 05:09 | NUR ---
IN PT ROOM FOR ROUNDING. LAB IN TO DRAW BLOOD, VS STABLE, NO COMPLAINT OF PAIN OR DISCOMFORT. CALL LIGHT IN REACH.
--- NOTE | 2022-03-20 06:15 | NUR ---
IN pt room for rounding, MRI checklist. Checklist complete, faxed to imaging. Pt seen to be calm and cooperative, able to make needs known. Pt has no complaint of pain or discomfort, was able to sign consent for MRI and does have some concern about claustrophobia regarding the MRI, ensured that MRI staff will talk pt through process. Pt call light in reach
--- NOTE | 2022-03-20 06:54 | NUR ---
CHARGE SPOKE WITH IMAGING AND MRI IS SCHEDULED FOR APPROXIMATELY 1300
--- NOTE | 2022-03-20 07:02 | NUR ---
REPORT RECEIVED FROM JOAQUIN GREENWOOD, ALL QUESTIONS ANSWERED. PT RESTING QUIETLY IN BED, RESPIRATIONS EVEN AND UNLABORED. CALL LIGHT IN REACH.
--- NOTE | 2022-03-20 07:19 | NUR ---
SPOKE TO RADHA IN PHARMACY REGARDING LISTED ALLERGY OF INSULIN LISPRO. PER RADHA, OKAY TO CONTINUE WITH REGULAR INSULIN ORDER. ALSO SPOKE TO LUI Thompson WHO WAS THE pt's PRIMARY RN YESTERDAY AND REPORTED THAT THE pt's SON DID NOT THINK pt WAS ALLERGIC TO INSULIN LISPRO.
--- NOTE | 2022-03-20 08:01 | NUR ---
MORNING ASSESSMENT COMPLETE. PT UP TO RESTROOM STANDBY ASSIST AND TO RECLINER. LEFT SIDE FACIAL DROOP NOTED. NO SLURRED SPEECH OR MOTOR DEFICIT NOTED TO BILAT UPPER AND LOWER EXTREMITIES. PT DENIES PAIN AT THIS TIME. CALL LIGHT IN REACH.
[2022-03-20] MEDS ORDERED: CHOLESTYRAMINE P4 GM PO (08:34)
--- NOTE | 2022-03-20 08:35 | NUR ---
MED REC COMPLETE
--- NOTE | 2022-03-20 10:38 | NUR ---
PT ALERT, ORIENTED AND SITTING IN CHAIR. PT HAS NOTICIBLE FACIAL DROOP, PT SEEMS TO BE DEALING APPROPRIATELY. PT MAY DC TODAY, GAVE ENCOURAGEMENT AND BLESSING. WILL FOLLOW
--- NOTE | 2022-03-20 12:04 | EKG ---
[facility] [address] [facility] [place] [address] Signed Normal sinus rhythm Prolonged QT Abnormal ECG When compared with ECG of 19-MAR-2022 14:37, Nonspecific T wave abnormality no longer evident in Anterolateral leads Confirmed by Delia Fernando MD () on 03/20/2022 12:04:51 PM Electronically Signed By: DELIA FERNANDO MD 03/20/22 1204 PATIENT NAME: MICHEL GREEN Electrocardiogram DATE OF : 45 PHYSICIAN: DELIA FERNANDO MD REPORT #: [id number] REPORT IS CONFIDENTIAL AND NOT TO BE RELEASED WITHOUT AUTHORIZATION
[2022-03-20] MEDS ORDERED: ARTIFICIAL TEAR15 M3 OU (14:21)
[2022-03-20] MEDS ORDERED: PREDNISONE20 MG PO (14:23)
--- NOTE | 2022-03-20 14:54 | NUR ---
TOOK IV OUT.
== END 2022-03-20 15:05 | disposition home or self-care (01) ==
LOC: ED 14:15 → MS 14:16
PROVIDERS: ADMIT Family Medicine; ATTEND Family Medicine
DX: G51.0 Bell's palsy (principal); Z91.040 Latex allergy status
CPT/HCPCS: 36415; 70450; 70496; 70498; 70551; 71045; 80053; 80061; 83036; 83735; 84100; 84484; 85025; 85610; 85730; 87502; 93005; 93010; A9270; C9803; Q9967; U0003